=== PATIENT | female | born 1945 ===

== ENCOUNTER 2021-07-06 14:26 | Inpatient (IN) | payer OTHER ==
[~2021-07-06] VITALS: Ht 160 cm; Wt 89.0 kg
[2021-07-06 15:08] LABS: Basophils # (auto) 0.1 10 ^3/uL (0-0.2); Eosinophils # (auto) 0.3 10 ^3/uL (0-0.8); Eosinophils % (auto) 2.7 % (0.0-7.0); Hematocrit 35.5 % (36.0-46.0); Hemoglobin 11.6 g/dL (12.2-16.2); Lymphocytes # (auto) 2.8 10 ^3/uL (0.4-5.4); Lymphocytes % (auto) 26.1 % (10.0-50.0); Mean Corpuscular Hemoglobin 28.8 pg (28.0-32.0); Mean Corpuscular Hgb Conc. 32.8 g/dL (32.0-36.0); Mean Corpuscular Volume 87.9 fL (80.0-100.0); Monocytes # (auto) 0.8 10 ^3/uL (0-1.3); Monocytes % (auto) 7.7 % (0.0-12.0); Neutrophils # (auto) 6.6 10 ^3/uL (1.6-8.6); Neutrophils % (auto) 62.5 % (37.0-80.0); Nucleated Red Blood Cells % 0.1 %; Red Blood Cells 4.03 10^6/uL (4.0-5.20); Red Cell Distribution Width 14.9 % (11.8-14.3); White Blood Cell 10.6 10^3/uL (4.4-10.8)
[2021-07-06 15:28] LABS: Alanine Aminotransferase 18 U/L (13-56); Albumin 2.8 g/dL (3.4-5.0); Anion Gap 6 (5-15); Aspartate Aminotransferase 19 U/L (15-37); BUN/Creatinine Ratio 19.2; Blood Urea Nitrogen 20 mg/dL (7-18); Calcium 8.6 mg/dL (8.5-10.1); Carbon Dioxide 23 mmol/L (21-32); Chloride 112 mmol/L (98-107); GFR African American 67 mL/min; GFR Non-African American 55 mL/min; Glucose 138 mg/dL (74-106); Magnesium 2.2 mg/dL (1.6-2.6); Potassium 3.7 mmol/L (3.5-5.1); Sodium 141 mmol/L (136-145)
[2021-07-06 15:29] LABS: INR 1.13 (0.9-1.15); Partial Thromboplastin Time 25.8 sec (23.6-33.0)
[2021-07-06 15:33] LABS: Alkaline Phosphatase 65 U/L (45-117); Bilirubin, Total 0.8 mg/dL (0.2-1.0); Total Protein 6.8 g/dL (6.4-8.2)
[2021-07-06] MEDS ORDERED: FUROSEMIDE 40 MG/4 ML VIAL IV ONE (17:45)
[2021-07-06] MEDS ORDERED: LORazepam 0.5 MG TAB PO PRN (20:30)
[2021-07-06] MEDS ORDERED: SODIUM CHLORIDE 0.9% 1,000 ML IV SCH (20:30)
[2021-07-06] MEDS: DOXYCYCLINE 100MG/250ML 250 ML IV SCH (20:30)
[2021-07-06] MEDS ORDERED: ENOXAPARIN SOD 40 MG/0.4 ML SYRINGE SC ONE (20:30)
[2021-07-06] MEDS ORDERED: ATORVASTATIN 20 MG TAB PO ONE (20:30)
[2021-07-06] MEDS ORDERED: LACTATED RINGER'S 1,000 ML IV ONE (20:30)
[2021-07-06] MEDS ORDERED: ALUM & MAG HYDROX-SIMETH LIQ(MAALOX) 30 ML PO PRN (20:30)
[2021-07-06] MEDS ORDERED: ACETAMINOPHEN 325 MG TAB PO PRN (20:30)
[2021-07-06] MEDS ORDERED: DOXYCYCLINE 100MG/250ML 250 ML IV ONE (20:30)
[2021-07-06] MEDS ORDERED: MORPHINE SULFATE INJECTION 2 MG/ML SYRG IV PRN ×3 (20:30)
[2021-07-06] MEDS ORDERED: NITROGLYCERIN 0.4 MG SL TAB SL PRN ×2 (20:30)
[2021-07-06] MEDS ORDERED: LISINOPRIL 10 MG TAB PO ONE (20:45)
[2021-07-06] MEDS ORDERED: FAMOTIDINE (10MG/ML) 2ML VL IV ONE (20:45)
[2021-07-06] MEDS ORDERED: DEXTROSE (50%) 50ML SYRG IV PRN (20:45)
[2021-07-06 20:55] LABS: Cholesterol 182 mg/dL (< 200)
[2021-07-06 20:58] LABS: HDL Cholesterol 29 mg/dL (40-59); LDL Cholesterol 89 mg/dL (< 100); Triglycerides 376 mg/dL (< 150)
[2021-07-07] VITALS (21 sets, daily range): BP systolic 135–173; BP diastolic 40–58
[2021-07-07] MEDS ORDERED: DOPamine 1600MCG/ML D5W 250 ML IV SCH (00:15)
[2021-07-07] MEDS: InsuLIN REG 1unit/0.01ml Soln (100units/ml) SC SCH ×4 (00:21→21:43)
[2021-07-07] MEDS: ACCU-CHEK COMFORT CURVE STRIP VI SCH ×4 (00:22→21:44)
[2021-07-07] MEDS: ATORVASTATIN 20 MG TAB PO SCH ×2 (00:49→21:41)
[2021-07-07] MEDS ORDERED: hydrALAZINE HCL 20 MG/ML VL IV ONE (03:30)
[2021-07-07] MEDS: HYDROcodone-ACET 5/325MG TAB PO PRN ×2 (04:38→12:49)
[2021-07-07] MEDS: ONDANSETRON HCL 4 MG/2 ML VIAL IV PRN (05:23)
[2021-07-07] MEDS ORDERED: fentaNYL CITRATE 100 MCG/2 ML VL IV ONE (05:30)
[2021-07-07] MEDS ORDERED: HEPARIN SODIUM (PORCINE) 5000 UNITS/ML 1ML VIAL IV ONE (05:30)
[2021-07-07] MEDS ORDERED: fentaNYL CITRATE 100 MCG/2 ML VL ONE ×2 (05:48→07:45)
[2021-07-07 05:55] LABS: INR 1.13 (0.9-1.15); Partial Thromboplastin Time 25.3 sec (23.6-33.0)
[2021-07-07] MEDS ORDERED: FUROSEMIDE 20 MG/2 ML VIAL IV SCH (06:00)
[2021-07-07] MEDS ORDERED: LIDOCAINE 2%HCL (LOCAL ANESTH.) INJ 20ML MDV ONE (07:39)
[2021-07-07] MEDS ORDERED: IOHEXOL 350 MG/ML 100ML IJ ONE (07:39)
[2021-07-07] MEDS ORDERED: ANGIOMAX 250 MG VIAL IV ONE (07:44)
[2021-07-07] MEDS ORDERED: SODIUM CHL 0.9% 50 ML ONE (07:45)
[2021-07-07] MEDS ORDERED: diphenhdrAMINE HCL 50 MG/1 ML VL ONE (07:45)
[2021-07-07] MEDS ORDERED: MIDAZOLAM HCL 2MG/2ML 2ml VIAL (1mg/ml) ONE (07:45)
[2021-07-07] MEDS ORDERED: ONDANSETRON HCL 4 MG/2 ML VIAL ONE (08:04)
[2021-07-07] MEDS ORDERED: HEPARIN DRIP/D5W 100UNITS/ML 250 ML IV SCH (08:15)
[2021-07-07] MEDS ORDERED: IODIXANOL 320MG/ML 100ML BTL IV ONE ×2 (08:28→08:45)
[2021-07-07] MEDS ORDERED: ASPirin 325 MG TAB ONE (09:08)
[2021-07-07] MEDS ORDERED: TICAGRELOR 90 MG TAB ONE (09:08)
[2021-07-07] MEDS: ASPirin 81 mg TAB PO SCH (09:30)
[2021-07-07] MEDS ORDERED: ENOXAPARIN SOD 40 MG/0.4 ML SYRINGE SC SCH (10:00)
[2021-07-07] MEDS ORDERED: FAMOTIDINE (10MG/ML) 2ML VL IV SCH (10:00)
[2021-07-07] MEDS: LISINOPRIL 10 MG TAB PO SCH (10:28)
[2021-07-07] MEDS: DOXYCYCLINE 100MG/250ML 250 ML IV SCH ×2 (10:31→20:44)
[2021-07-07] MEDS: ISOSORBIDE MONONITRATE ER 60 MG TAB PO SCH (10:31)
[2021-07-07] MEDS: hydrALAZINE HCL 20 MG/ML VL IV PRN (11:58)
[2021-07-07] MEDS: TICAGRELOR 90 MG TAB PO SCH (21:42)
[2021-07-08] VITALS (22 sets, daily range): BP systolic 125–192; BP diastolic 42–129
[2021-07-08] MEDS: ONDANSETRON HCL 4 MG/2 ML VIAL IV PRN (04:17)
[2021-07-08 04:35] LABS: Basophils # (auto) 0.1 10 ^3/uL (0-0.2); Basophils % (auto) 0.7 % (0.0-2.0); Eosinophils # (auto) 0.1 10 ^3/uL (0-0.8); Eosinophils % (auto) 1.2 % (0.0-7.0); Hematocrit 34.7 % (36.0-46.0); Hemoglobin 11.7 g/dL (12.2-16.2); Lymphocytes # (auto) 2.4 10 ^3/uL (0.4-5.4); Lymphocytes % (auto) 20.9 % (10.0-50.0); Mean Corpuscular Hemoglobin 29.6 pg (28.0-32.0); Mean Corpuscular Hgb Conc. 33.7 g/dL (32.0-36.0); Monocytes # (auto) 1.1 10 ^3/uL (0-1.3); Monocytes % (auto) 9.4 % (0.0-12.0); Neutrophils # (auto) 7.7 10 ^3/uL (1.6-8.6); Neutrophils % (auto) 67.8 % (37.0-80.0); Nucleated Red Blood Cells % 0.2 %; Red Blood Cells 3.95 10^6/uL (4.0-5.20); Red Cell Distribution Width 15.3 % (11.8-14.3); White Blood Cell 11.4 10^3/uL (4.4-10.8)
[2021-07-08 04:46] LABS: INR 1.1 (0.9-1.15); Partial Thromboplastin Time 26.3 sec (23.6-33.0)
[2021-07-08] MEDS: ACCU-CHEK COMFORT CURVE STRIP VI SCH ×4 (06:30→22:04)
[2021-07-08] MEDS: InsuLIN REG 1unit/0.01ml Soln (100units/ml) SC SCH ×4 (06:30→22:04)
[2021-07-08] MEDS ORDERED: LIDOCAINE 2%HCL (LOCAL ANESTH.) INJ 20ML MDV ONE (08:18)
[2021-07-08] MEDS: hydrALAZINE HCL 20 MG/ML VL IV PRN (08:20)
[2021-07-08] MEDS: DOXYCYCLINE 100MG/250ML 250 ML IV SCH ×2 (08:33→20:38)
[2021-07-08] MEDS ORDERED: fentaNYL CITRATE 100 MCG/2 ML VL ONE ×2 (08:42→09:42)
[2021-07-08] MEDS ORDERED: MIDAZOLAM HCL 2MG/2ML 2ml VIAL (1mg/ml) ONE ×3 (08:42→10:24)
[2021-07-08] MEDS ORDERED: VANCOMYCIN HCL 1000 MG VL ONE ×2 (08:43→10:21)
[2021-07-08 08:52] LABS: BUN/Creatinine Ratio 19.6; Calcium 8.7 mg/dL (8.5-10.1); Potassium 3.6 mmol/L (3.5-5.1)
[2021-07-08] MEDS ORDERED: IODIXANOL 320MG/ML 100ML BTL IV ONE (09:11)
[2021-07-08] MEDS ORDERED: diphenhdrAMINE HCL 50 MG/1 ML VL ONE (09:24)
[2021-07-08] MEDS ORDERED: VANCOMYCIN 1GM/250ML 250 ML IV ONE (09:34)
[2021-07-08] MEDS: ASPirin 81 mg TAB PO SCH (10:00)
[2021-07-08] MEDS: TICAGRELOR 90 MG TAB PO SCH ×2 (10:00→21:21)
[2021-07-08] MEDS: ISOSORBIDE MONONITRATE ER 60 MG TAB PO SCH (11:27)
[2021-07-08] MEDS: PANTOPRAZOLE 40 MG TAB PO SCH (11:27)
[2021-07-08] MEDS: LISINOPRIL 10 MG TAB PO SCH (11:28)
[2021-07-08] MEDS: HYDROcodone-ACET 5/325MG TAB PO PRN (17:03)
[2021-07-08] MEDS: ATORVASTATIN 20 MG TAB PO SCH (21:21)
[2021-07-08] MEDS: VANCOMYCIN 1GM/250ML 250 ML IV SCH (22:05)
[2021-07-09 05:00] VITALS: BP 148/71
[2021-07-09 06:00] VITALS: BP 153/68
[2021-07-09 06:13] LABS: Calcium 8.6 mg/dL (8.5-10.1); Potassium 3.6 mmol/L (3.5-5.1)
[2021-07-09 06:16] LABS: BUN/Creatinine Ratio 22.5
[2021-07-09] MEDS: InsuLIN REG 1unit/0.01ml Soln (100units/ml) SC SCH ×3 (06:18→17:00)
[2021-07-09] MEDS: ACCU-CHEK COMFORT CURVE STRIP VI SCH ×3 (06:18→17:00)
[2021-07-09] MEDS: VANCOMYCIN 1GM/250ML 250 ML IV SCH (09:40)
[2021-07-09] MEDS: ASPirin 81 mg TAB PO SCH (09:40)
[2021-07-09] MEDS: DOXYCYCLINE 100MG/250ML 250 ML IV SCH (09:40)
[2021-07-09] MEDS: PANTOPRAZOLE 40 MG TAB PO SCH (09:43)
[2021-07-09] MEDS: ISOSORBIDE MONONITRATE ER 60 MG TAB PO SCH (09:43)
[2021-07-09] MEDS: LISINOPRIL 10 MG TAB PO SCH (09:43)
[2021-07-09] MEDS ORDERED: ATOR40TA52 PO (11:19)
[2021-07-09] MEDS ORDERED: PANT40T PO (11:19)
[2021-07-09] MEDS ORDERED: LISI-716 PO (11:19)
[2021-07-09] MEDS ORDERED: NITR0.4S29 SL (11:19)
[2021-07-09] MEDS ORDERED: DOXY-286 PO (11:19)
[2021-07-09] MEDS ORDERED: TICA90TA PO (11:19)
[2021-07-09] MEDS ORDERED: ASPI1TAB20 PO (11:19)
[2021-07-09 12:00] VITALS: BP 132/60
[2021-07-09] MEDS: TICAGRELOR 90 MG TAB PO SCH (12:13)
[2021-07-09 15:39] VITALS: BP 132/60
[2021-07-09 16:00] VITALS: BP 140/78
[2021-07-09] MEDS ORDERED: METO25TA5 PO (16:27)
== END 2021-07-09 17:10 | disposition home or self-care (01) | DRG 242 ==
LOC: EDBD 14:26 → ER 14:26 → TELE 20:19 → ICU WEST 07-07 14:40 → TELE-CENTR 07-08 17:44
PROVIDERS: ADMIT Hospitalist; ATTEND Internal Medicine
PROC: 027034Z Dilation of Coronary Artery, One Artery with Drug-eluting Intraluminal Device, Percutaneous Approach (ICD-10-PCS; 2021-07-07)
PROC: 4A023N7 Measurement of Cardiac Sampling and Pressure, Left Heart, Percutaneous Approach (ICD-10-PCS; 2021-07-07)
PROC: B211YZZ Fluoroscopy of Multiple Coronary Arteries using Other Contrast (ICD-10-PCS; 2021-07-07)
PROC: B215YZZ Fluoroscopy of Left Heart using Other Contrast (ICD-10-PCS; 2021-07-07)
PROC: 0JH606Z Insertion of Pacemaker, Dual Chamber into Chest Subcutaneous Tissue and Fascia, Open Approach (ICD-10-PCS; principal; 2021-07-08)
PROC: 02H63JZ Insertion of Pacemaker Lead into Right Atrium, Percutaneous Approach (ICD-10-PCS; 2021-07-08)
PROC: 02HK3JZ Insertion of Pacemaker Lead into Right Ventricle, Percutaneous Approach (ICD-10-PCS; 2021-07-08)
DX: I44.2 Atrioventricular block, complete (principal); J81.0 Acute pulmonary edema; I50.43 Acute on chronic combined systolic (congestive) and diastolic (congestive) heart failure; N39.0 Urinary tract infection, site not specified; N17.9 Acute kidney failure, unspecified; I13.0 Hypertensive heart and chronic kidney disease with heart failure and stage 1 through stage 4 chronic kidney disease, or unspecified chronic kidney disease; I25.10 Atherosclerotic heart disease of native coronary artery without angina pectoris; K21.9 Gastro-esophageal reflux disease without esophagitis; N18.31 Chronic kidney disease, stage 3a; N20.0 Calculus of kidney; K29.70 Gastritis, unspecified, without bleeding; E66.9 Obesity, unspecified; D64.9 Anemia, unspecified; E11.22 Type 2 diabetes mellitus with diabetic chronic kidney disease; E11.319 Type 2 diabetes mellitus with unspecified diabetic retinopathy without macular edema; E11.40 Type 2 diabetes mellitus with diabetic neuropathy, unspecified; E78.1 Pure hyperglyceridemia; E78.5 Hyperlipidemia, unspecified; E88.09 Other disorders of plasma-protein metabolism, not elsewhere classified; E89.0 Postprocedural hypothyroidism; Z20.822 Contact with and (suspected) exposure to COVID-19; Z79.02 Long term (current) use of antithrombotics/antiplatelets; Z82.49 Family history of ischemic heart disease and other diseases of the circulatory system; Z86.73 Personal history of transient ischemic attack (TIA), and cerebral infarction without residual deficits; Z87.442 Personal history of urinary calculi; Z90.710 Acquired absence of both cervix and uterus; Z95.1 Presence of aortocoronary bypass graft; Z83.3 Family history of diabetes mellitus; Z88.8 Allergy status to other drugs, medicaments and biological substances; Z68.34 Body mass index [BMI] 34.0-34.9, adult
CPT/HCPCS: 33208; 36415; 71045; 80048; 80053; 80061; 82962; 83036; 83735; 83880; 84443; 84484; 85025; 85610; 85730; 86850; 86900; 86901; 87040; 87426; 92928; 93005; 93306; 93458; 96365; 96366; 96372; 96375; 99152; 99153; 99291; C1785; C1874; C1887; G0378; J1815; J2250; J2405; J3490; Q9967

== ENCOUNTER 2021-08-28 14:25 | Emergency (ER) | payer OTHER ==
[~2021-08-28] VITALS: Ht 160 cm; Wt 81.6 kg
[~2021-08-28 14:25] MED LIST: ASPI1TAB20 PO; ATOR40TA52 PO; DOXY-286 PO; LISI-716 PO; METO25TA5 PO; NITR0.4S29 SL; PANT40T PO; TICA90TA PO
[2021-08-28 16:22] LABS: Basophils # (auto) 0 10 ^3/uL (0-0.2); Basophils % (auto) 0.4 % (0.0-2.0); Eosinophils # (auto) 0.1 10 ^3/uL (0-0.8); Eosinophils % (auto) 0.7 % (0.0-7.0); Hematocrit 37.4 % (36.0-46.0); Hemoglobin 12.4 g/dL (12.2-16.2); Lymphocytes # (auto) 1.4 10 ^3/uL (0.4-5.4); Mean Corpuscular Hemoglobin 28.4 pg (28.0-32.0); Mean Corpuscular Hgb Conc. 33.1 g/dL (32.0-36.0); Mean Corpuscular Volume 85.8 fL (80.0-100.0); Monocytes # (auto) 0.2 10 ^3/uL (0-1.3); Monocytes % (auto) 2.4 % (0.0-12.0); Neutrophils # (auto) 8.2 10 ^3/uL (1.6-8.6); Neutrophils % (auto) 82.5 % (37.0-80.0); Red Blood Cells 4.36 10^6/uL (4.0-5.20); White Blood Cell 9.9 10^3/uL (4.4-10.8)
[2021-08-28 16:38] LABS: BUN/Creatinine Ratio 11.5; Calcium 8.8 mg/dL (8.5-10.1); Potassium 3.7 mmol/L (3.5-5.1)
[2021-08-28 16:42] LABS: Bilirubin, Total 0.9 mg/dL (0.2-1.0); Total Protein 7.5 g/dL (6.4-8.2)
[2021-08-28 21:31] VITALS: BP 133/71
== END 2021-08-28 21:57 | disposition home or self-care (01) ==
LOC: ER 14:25 → EDBD 14:25 → ER 21:57
DX: R55 Syncope and collapse (principal); E78.5 Hyperlipidemia, unspecified; I10 Essential (primary) hypertension; K21.9 Gastro-esophageal reflux disease without esophagitis; Z90.710 Acquired absence of both cervix and uterus
CPT/HCPCS: 36415; 70450; 71045; 80053; 84484; 85025; 93005

== ENCOUNTER 2021-11-30 05:26 | Inpatient (IN) | payer OTHER ==
[~2021-11-30] VITALS: Ht 160 cm; Wt 80.0 kg
[2021-11-30 06:17] LABS: Basophils # (auto) 0.1 10 ^3/uL (0-0.2); Basophils % (auto) 0.9 % (0.0-2.0); Eosinophils # (auto) 0.2 10 ^3/uL (0-0.8); Eosinophils % (auto) 2.7 % (0.0-7.0); Hemoglobin 12.9 g/dL (12.2-16.2); Lymphocytes % (auto) 41.6 % (10.0-50.0); Mean Corpuscular Hemoglobin 27.7 pg (28.0-32.0); Mean Corpuscular Hgb Conc. 32.2 g/dL (32.0-36.0); Monocytes # (auto) 0.6 10 ^3/uL (0-1.3); Monocytes % (auto) 8.2 % (0.0-12.0); Neutrophils # (auto) 3.3 10 ^3/uL (1.6-8.6); Neutrophils % (auto) 46.6 % (37.0-80.0); Nucleated Red Blood Cells % 0.1 %; Red Blood Cells 4.65 10^6/uL (4.0-5.20); Red Cell Distribution Width 16.3 % (11.8-14.3); White Blood Cell 7.2 10^3/uL (4.4-10.8)
[2021-11-30 06:34] LABS: Potassium 3.3 mmol/L (3.5-5.1)
[2021-11-30 06:35] LABS: Albumin 3.2 g/dL (3.4-5.0)
[2021-11-30 06:41] LABS: BUN/Creatinine Ratio 18.6; Bilirubin, Total 0.6 mg/dL (0.2-1.0); Total Protein 8.1 g/dL (6.4-8.2)
[2021-11-30 07:16] LABS: Urine Bacteria NONE SEEN /hpf (None Seen); Urine Blood Negative /uL (Negative); Urine WBC 1 /hpf (0 - 5)
[2021-11-30] MEDS ORDERED: IOHEXOL 350 MG/ML 100ML IJ ONE (07:45)
[2021-11-30] MEDS ORDERED: cefTRIAXone W LIDOCAINE 1 GM IM IM ONE (09:30)
[2021-11-30] MEDS ORDERED: POTASSIUM EFFERVESENT TAB 25 MEQ PO ONE (09:30)
[2021-11-30] MEDS ORDERED: ASPirin 81 mg TAB PO ONE (09:45)
[2021-11-30] MEDS ORDERED: cefTRIAXone SOD 1,000 MG VL ONE (10:04)
[2021-11-30] MEDS ORDERED: LIDOCAINE 1% HCL (LOCAL ANESTH.) INJ 20ML MDV ONE (10:04)
[2021-11-30] MEDS ORDERED: PANTOPRAZOLE 40 MG/10 ML VIAL INJ IV ONE ×3 (13:45→20:00)
[2021-11-30] MEDS ORDERED: FUROSEMIDE 40 MG/4 ML VIAL IV ONE (14:00)
[2021-11-30] MEDS ORDERED: SUCCINYLCHOLINE CHLORIDE 20 MG/ML 10ML VIAL IV ONE ×2 (14:08→14:30)
[2021-11-30] MEDS ORDERED: ETOMIDATE (2MG/ML) 20ML VIAL IV ONE ×2 (14:08→14:30)
[2021-11-30 14:15] VITALS: BP 134/77
[2021-11-30] MEDS ORDERED: MIDAZOLAM DRIP 50 mg/50mL 50 ML IV ONE (14:16)
[2021-11-30] MEDS: MIDAZOLAM DRIP 50 mg/50mL 50 ML IV SCH (14:30)
[2021-11-30] MEDS: fentaNYL Drip 2500mCg/250mlNS 250 ML IV SCH (14:30)
[2021-11-30] MEDS ORDERED: fentaNYL Drip 2500mCg/250mlNS 250 ML IV ONE (14:41)
[2021-11-30] MEDS ORDERED: NOREPINEPHRINE 8 MG/250ML KIT 250 ML IV ONE (15:11)
[2021-11-30] MEDS: NOREPINEPHRINE 8 MG/250ML KIT 250 ML IV SCH (15:24)
[2021-11-30 16:09] VITALS: BP 100/49
[2021-11-30] MEDS ORDERED: FUROSEMIDE 100 MG/10ML VIAL IV ONE (16:30)
[2021-11-30] MEDS ORDERED: ENOXAPARIN SOD 100 MG/1 ML SYRINGE SC ONE (16:30)
[2021-11-30] MEDS ORDERED: NITROGLYCERIN 0.4 MG SL TAB SL PRN (16:30)
[2021-11-30] MEDS ORDERED: MORPHINE SULFATE INJECTION 2 MG/ML SYRG IV PRN ×2 (16:30→20:15)
[2021-11-30 19:15] VITALS: BP 96/72
[2021-11-30] MEDS ORDERED: hydrALAZINE HCL 20 MG/ML VL IV PRN (20:15)
[2021-11-30] MEDS ORDERED: HYDROcodone-ACET 5/325MG TAB PO ONE (20:15)
[2021-11-30] MEDS ORDERED: LORazepam 0.5 MG TAB PO PRN (20:15)
[2021-11-30] MEDS ORDERED: metroNIDAZOLE 500MG/100ML 100 ML IV ONE (20:15)
[2021-11-30] MEDS ORDERED: ONDANSETRON HCL 4 MG/2 ML VIAL IV PRN (20:15)
[2021-11-30] MEDS ORDERED: DOCUSATE SOD 100 MG CAP PO PRN (20:15)
[2021-11-30] MEDS ORDERED: POTASSIUM CHL 10MEQ/50ML 50 ML IV ONE (20:15)
[2021-11-30] MEDS ORDERED: BUMETANIDE 2.5mg/10ml (0.25 mg/ml) INJ IV ONE (20:15)
[2021-11-30] MEDS ORDERED: IPRATROPIUM BROM 0.5 MG/2.5ML INH SOL NEB ONE (20:15)
[2021-11-30] MEDS ORDERED: DEXTROSE (50%) 50ML SYRG IV PRN (21:00)
[2021-11-30 21:55] LABS: Phosphorus 4.2 mg/dL (2.5-4.90)
[2021-11-30 22:00] LABS: INR 1.16 (0.9-1.15); Partial Thromboplastin Time 27.9 sec (23.6-33.0)
[2021-11-30] MEDS: TICAGRELOR 90 MG TAB PO SCH (22:00)
[2021-11-30] MEDS: ATORVASTATIN 20 MG TAB PO SCH (22:00)
[2021-11-30] MEDS: POTASSIUM CHL 20 Meq TABLET PO SCH (22:00)
[2021-11-30] MEDS ORDERED: METOPROLOL TARTRATE 25 MG TAB PO SCH (22:00)
[2021-11-30] MEDS ORDERED: IPRATROPIUM BROM 0.5 MG/2.5ML INH SOL NEB SCH (22:00)
[2021-11-30 22:28] VITALS: BP_SYST 117; BP_SYST 5; BP_DIAS 65; BP_DIAS 72
[2021-12-01] VITALS (7 sets, daily range): BP systolic 104–136; BP diastolic 43–65
[2021-12-01] MEDS: InsuLIN REG 1unit/0.01ml Soln (100units/ml) SC SCH ×5 (01:48→22:36)
[2021-12-01] MEDS: ACCU-CHEK COMFORT CURVE STRIP VI SCH ×5 (05:29→22:34)
[2021-12-01] MEDS: metroNIDAZOLE 500MG/100ML 100 ML IV SCH ×3 (05:29→20:31)
[2021-12-01] MEDS: BUMETANIDE 2.5mg/10ml (0.25 mg/ml) INJ IV SCH ×2 (06:23→18:16)
[2021-12-01 07:58] LABS: Basophils # (auto) 0.1 10 ^3/uL (0-0.2); Basophils % (auto) 0.6 % (0.0-2.0); Eosinophils # (auto) 0.1 10 ^3/uL (0-0.8); Eosinophils % (auto) 0.7 % (0.0-7.0); Hematocrit 36.8 % (36.0-46.0); Hemoglobin 12.2 g/dL (12.2-16.2); Lymphocytes # (auto) 3.2 10 ^3/uL (0.4-5.4); Lymphocytes % (auto) 29.9 % (10.0-50.0); Mean Corpuscular Hemoglobin 28.6 pg (28.0-32.0); Mean Corpuscular Hgb Conc. 33.2 g/dL (32.0-36.0); Mean Corpuscular Volume 86.2 fL (80.0-100.0); Monocytes # (auto) 0.9 10 ^3/uL (0-1.3); Monocytes % (auto) 8.5 % (0.0-12.0); Neutrophils # (auto) 6.5 10 ^3/uL (1.6-8.6); Neutrophils % (auto) 60.3 % (37.0-80.0); Nucleated Red Blood Cells % 0.1 %; Red Blood Cells 4.27 10^6/uL (4.0-5.20); Red Cell Distribution Width 16.4 % (11.8-14.3); White Blood Cell 10.7 10^3/uL (4.4-10.8)
[2021-12-01 08:11] LABS: INR 1.14 (0.9-1.15); Partial Thromboplastin Time 27.6 sec (23.6-33.0)
[2021-12-01 08:19] LABS: Potassium 3.5 mmol/L (3.5-5.1)
[2021-12-01 08:33] LABS: Albumin 2.8 g/dL (3.4-5.0); BUN/Creatinine Ratio 21.6; Bilirubin, Total 0.8 mg/dL (0.2-1.0); Calcium 8.4 mg/dL (8.5-10.1); Phosphorus 3.6 mg/dL (2.5-4.90); Total Protein 7.2 g/dL (6.4-8.2)
[2021-12-01] MEDS: cefTRIAXone 1GM/50ML D5W 50 ML IV SCH (09:51)
[2021-12-01] MEDS ORDERED: ENOXAPARIN SOD 40 MG/0.4 ML SYRINGE SC SCH (10:00)
[2021-12-01] MEDS: POTASSIUM CHL 20 Meq TABLET PO SCH ×2 (10:33→22:00)
[2021-12-01] MEDS: ASPirin-EC 81 mg tab PO SCH (10:33)
[2021-12-01] MEDS: PANTOPRAZOLE 40 MG/10 ML VIAL INJ IV SCH (10:54)
[2021-12-01] MEDS: ENOXAPARIN SOD 100 MG/1 ML SYRINGE SC SCH ×2 (10:54→22:00)
[2021-12-01] MEDS: TICAGRELOR 90 MG TAB PO SCH ×2 (11:09→22:00)
[2021-12-01] MEDS: MIDAZOLAM DRIP 50 mg/50mL 50 ML IV SCH (14:34)
[2021-12-01] MEDS: fentaNYL Drip 2500mCg/250mlNS 250 ML IV SCH (14:51)
[2021-12-01] MEDS: NOREPINEPHRINE 8 MG/250ML KIT 250 ML IV SCH (15:58)
[2021-12-01] MEDS: ATORVASTATIN 20 MG TAB PO SCH (22:00)
[2021-12-02] VITALS (30 sets, daily range): BP systolic 96–152; BP diastolic 38–76
[2021-12-02] MEDS: metroNIDAZOLE 500MG/100ML 100 ML IV SCH (04:57)
[2021-12-02] MEDS: BUMETANIDE 2.5mg/10ml (0.25 mg/ml) INJ IV SCH ×2 (06:38→18:23)
[2021-12-02] MEDS: InsuLIN REG 1unit/0.01ml Soln (100units/ml) SC SCH ×3 (06:40→18:13)
[2021-12-02] MEDS: ACCU-CHEK COMFORT CURVE STRIP VI SCH ×4 (06:44→22:00)
[2021-12-02 08:06] LABS: Basophils # (auto) 0 10 ^3/uL (0-0.2); Basophils % (auto) 0.4 % (0.0-2.0); Eosinophils # (auto) 0.3 10 ^3/uL (0-0.8); Eosinophils % (auto) 2.1 % (0.0-7.0); Hematocrit 32.9 % (36.0-46.0); Hemoglobin 10.9 g/dL (12.2-16.2); Lymphocytes # (auto) 2.2 10 ^3/uL (0.4-5.4); Lymphocytes % (auto) 18.9 % (10.0-50.0); Mean Corpuscular Hemoglobin 28.6 pg (28.0-32.0); Mean Corpuscular Hgb Conc. 33.2 g/dL (32.0-36.0); Mean Corpuscular Volume 86.2 fL (80.0-100.0); Monocytes # (auto) 1.2 10 ^3/uL (0-1.3); Monocytes % (auto) 10.2 % (0.0-12.0); Neutrophils # (auto) 8.1 10 ^3/uL (1.6-8.6); Neutrophils % (auto) 68.4 % (37.0-80.0); Nucleated Red Blood Cells % 0.1 %; Red Blood Cells 3.82 10^6/uL (4.0-5.20); Red Cell Distribution Width 16.3 % (11.8-14.3); White Blood Cell 11.8 10^3/uL (4.4-10.8)
[2021-12-02 08:19] LABS: INR 1.1 (0.9-1.15); Partial Thromboplastin Time 26.5 sec (23.6-33.0)
[2021-12-02 08:25] LABS: Calcium 8.7 mg/dL (8.5-10.1); Potassium 3.3 mmol/L (3.5-5.1)
[2021-12-02] MEDS ORDERED: SODIUM CHL 0.9% 50 ML ONE (09:42)
[2021-12-02] MEDS ORDERED: ANGIOMAX 250 MG VIAL IV ONE (09:42)
[2021-12-02] MEDS ORDERED: HEPARIN SODIUM (PORCINE) 5000 UNITS/ML 1ML VIAL ONE (09:50)
[2021-12-02] MEDS ORDERED: VERAPAMIL 2.5MG/ML INJ 2ML VIAL IV ONE (09:50)
[2021-12-02] MEDS: TICAGRELOR 90 MG TAB PO SCH ×2 (10:00→22:00)
[2021-12-02] MEDS ORDERED: IODIXANOL 320MG/ML 100ML BTL IV ONE (10:23)
[2021-12-02] MEDS ORDERED: TICAGRELOR 90 MG TAB ONE (11:07)
[2021-12-02] MEDS: MIDAZOLAM DRIP 50 mg/50mL 50 ML IV SCH ×2 (14:30→21:30)
[2021-12-02] MEDS: cefTRIAXone 1GM/50ML D5W 50 ML IV SCH (15:14)
[2021-12-02] MEDS: POTASSIUM CHL 20 Meq TABLET PO SCH ×2 (15:15→22:00)
[2021-12-02] MEDS: NOREPINEPHRINE 8 MG/250ML KIT 250 ML IV SCH (16:00)
[2021-12-02] MEDS: ASPirin-EC 81 mg tab PO SCH (17:25)
[2021-12-02] MEDS: PANTOPRAZOLE 40 MG/10 ML VIAL INJ IV SCH (17:26)
[2021-12-02] MEDS: fentaNYL Drip 2500mCg/250mlNS 250 ML IV SCH (21:27)
[2021-12-02] MEDS: ATORVASTATIN 20 MG TAB PO SCH (22:00)
[2021-12-03] VITALS (38 sets, daily range): BP systolic 94–158; BP diastolic 40–81
[2021-12-03] MEDS: InsuLIN REG 1unit/0.01ml Soln (100units/ml) SC SCH ×5 (01:19→23:25)
[2021-12-03] MEDS: BUMETANIDE 2.5mg/10ml (0.25 mg/ml) INJ IV SCH (05:32)
[2021-12-03] MEDS: ACCU-CHEK COMFORT CURVE STRIP VI SCH ×4 (05:33→22:00)
[2021-12-03] MEDS: IPRATROPIUM BROM 0.5 MG/2.5ML INH SOL NEB PRN ×2 (06:31→14:06)
[2021-12-03] MEDS: POTASSIUM CHL 20 Meq TABLET PO SCH ×2 (10:00→22:00)
[2021-12-03] MEDS: PANTOPRAZOLE 40 MG/10 ML VIAL INJ IV SCH (10:00)
[2021-12-03] MEDS: ASPirin-EC 81 mg tab PO SCH (10:00)
[2021-12-03] MEDS: TICAGRELOR 90 MG TAB PO SCH ×2 (10:00→22:00)
[2021-12-03] MEDS ORDERED: cefTRIAXone 1GM/50ML D5W 50 ML IV ONE (10:15)
[2021-12-03 11:51] LABS: Basophils # (auto) 0 10 ^3/uL (0-0.2); Basophils % (auto) 0.4 % (0.0-2.0); Eosinophils # (auto) 0 10 ^3/uL (0-0.8); Eosinophils % (auto) 0.5 % (0.0-7.0); Hematocrit 32.1 % (36.0-46.0); Hemoglobin 10.5 g/dL (12.2-16.2); Lymphocytes # (auto) 1.7 10 ^3/uL (0.4-5.4); Lymphocytes % (auto) 16.5 % (10.0-50.0); Mean Corpuscular Hemoglobin 28.5 pg (28.0-32.0); Mean Corpuscular Hgb Conc. 32.8 g/dL (32.0-36.0); Mean Corpuscular Volume 86.9 fL (80.0-100.0); Monocytes # (auto) 0.9 10 ^3/uL (0-1.3); Monocytes % (auto) 8.7 % (0.0-12.0); Neutrophils # (auto) 7.8 10 ^3/uL (1.6-8.6); Neutrophils % (auto) 73.9 % (37.0-80.0); Nucleated Red Blood Cells % 0.1 %; Red Cell Distribution Width 16.2 % (11.8-14.3); White Blood Cell 10.5 10^3/uL (4.4-10.8)
[2021-12-03] MEDS ORDERED: AMPICILLIN INJ 1 GM in SODIUM CHL 0.9% 50 ML IV SCH (12:00)
[2021-12-03 12:06] LABS: Albumin 2.4 g/dL (3.4-5.0); BUN/Creatinine Ratio 25.4; Calcium 8.8 mg/dL (8.5-10.1); Potassium 3.6 mmol/L (3.5-5.1)
[2021-12-03 12:09] LABS: Bilirubin, Total 0.8 mg/dL (0.2-1.0); Total Protein 6.9 g/dL (6.4-8.2)
[2021-12-03] MEDS: NOREPINEPHRINE 8 MG/250ML KIT 250 ML IV SCH (15:15)
[2021-12-03] MEDS: FUROSEMIDE 40 MG/4 ML VIAL IV SCH (17:53)
[2021-12-03] MEDS: CARVEDILOL 12.5 MG TAB PO SCH (22:00)
[2021-12-03] MEDS ORDERED: ATORVASTATIN 20 MG TAB PO SCH (22:00)
[2021-12-03] MEDS: ATORVASTATIN 20 MG TAB PO SCH (22:00)
[2021-12-04] VITALS (24 sets, daily range): BP systolic 102–158; BP diastolic 44–86
[2021-12-04] MEDS: FUROSEMIDE 40 MG/4 ML VIAL IV SCH ×2 (05:59→18:44)
[2021-12-04] MEDS: ACCU-CHEK COMFORT CURVE STRIP VI SCH ×4 (06:28→22:00)
[2021-12-04] MEDS: InsuLIN REG 1unit/0.01ml Soln (100units/ml) SC SCH ×4 (06:28→22:49)
[2021-12-04] MEDS: IPRATROPIUM BROM 0.5 MG/2.5ML INH SOL NEB PRN (08:30)
[2021-12-04] MEDS: cefTRIAXone 1GM/50ML D5W 50 ML IV SCH (09:20)
[2021-12-04] MEDS: LISINOPRIL 10 MG TAB PO SCH (10:00)
[2021-12-04] MEDS: DAPAGLIFLOZIN 5 MG TAB PO SCH (10:00)
[2021-12-04] MEDS: ASPirin-EC 81 mg tab PO SCH (10:00)
[2021-12-04] MEDS: TICAGRELOR 90 MG TAB PO SCH ×2 (10:00→22:00)
[2021-12-04] MEDS: POTASSIUM CHL 20 Meq TABLET PO SCH ×2 (10:00→22:48)
[2021-12-04] MEDS: CARVEDILOL 12.5 MG TAB PO SCH ×2 (10:00→22:00)
[2021-12-04] MEDS: PANTOPRAZOLE 40 MG/10 ML VIAL INJ IV SCH (10:00)
[2021-12-04 12:28] LABS: Basophils # (auto) 0 10 ^3/uL (0-0.2); Basophils % (auto) 0.3 % (0.0-2.0); Eosinophils # (auto) 0 10 ^3/uL (0-0.8); Hematocrit 32.2 % (36.0-46.0); Hemoglobin 10.7 g/dL (12.2-16.2); Lymphocytes # (auto) 1.3 10 ^3/uL (0.4-5.4); Mean Corpuscular Hemoglobin 28.8 pg (28.0-32.0); Mean Corpuscular Hgb Conc. 33.4 g/dL (32.0-36.0); Mean Corpuscular Volume 86.2 fL (80.0-100.0); Monocytes # (auto) 0.7 10 ^3/uL (0-1.3); Monocytes % (auto) 7.4 % (0.0-12.0); Neutrophils # (auto) 7.1 10 ^3/uL (1.6-8.6); Neutrophils % (auto) 78.3 % (37.0-80.0); Red Blood Cells 3.73 10^6/uL (4.0-5.20); Red Cell Distribution Width 16.3 % (11.8-14.3); White Blood Cell 9.1 10^3/uL (4.4-10.8)
[2021-12-04 12:56] LABS: BUN/Creatinine Ratio 28.9; Calcium 8.9 mg/dL (8.5-10.1); Potassium 3.2 mmol/L (3.5-5.1)
[2021-12-04] MEDS: ATORVASTATIN 20 MG TAB PO SCH (22:48)
[2021-12-05] VITALS (7 sets, daily range): BP systolic 91–119; BP diastolic 34–56
[2021-12-05] MEDS: FUROSEMIDE 40 MG/4 ML VIAL IV SCH ×2 (05:50→09:12)
[2021-12-05] MEDS: InsuLIN REG 1unit/0.01ml Soln (100units/ml) SC SCH ×4 (06:52→22:27)
[2021-12-05] MEDS: ACCU-CHEK COMFORT CURVE STRIP VI SCH ×4 (06:52→22:24)
[2021-12-05] MEDS: PANTOPRAZOLE 40 MG/10 ML VIAL INJ IV SCH (09:11)
[2021-12-05] MEDS: DAPAGLIFLOZIN 5 MG TAB PO SCH (09:12)
[2021-12-05] MEDS: TICAGRELOR 90 MG TAB PO SCH ×2 (09:13→22:23)
[2021-12-05] MEDS: ASPirin-EC 81 mg tab PO SCH (09:14)
[2021-12-05] MEDS: POTASSIUM CHL 20 Meq TABLET PO SCH ×2 (09:15→22:24)
[2021-12-05] MEDS: LISINOPRIL 10 MG TAB PO SCH (09:18)
[2021-12-05] MEDS: CARVEDILOL 12.5 MG TAB PO SCH ×2 (09:19→22:24)
[2021-12-05] MEDS: cefTRIAXone 1GM/50ML D5W 50 ML IV SCH (09:22)
[2021-12-05] MEDS: HYDROcodone-ACET 5/325MG TAB PO PRN ×2 (11:08→13:37)
[2021-12-05] MEDS: ATORVASTATIN 20 MG TAB PO SCH (22:23)
[2021-12-06 04:38] VITALS: BP 121/58
[2021-12-06] MEDS: FUROSEMIDE 40 MG/4 ML VIAL IV SCH ×2 (06:25→18:13)
[2021-12-06] MEDS: ACCU-CHEK COMFORT CURVE STRIP VI SCH ×4 (06:48→21:29)
[2021-12-06] MEDS: InsuLIN REG 1unit/0.01ml Soln (100units/ml) SC SCH ×4 (06:49→21:29)
[2021-12-06 09:10] VITALS: BP 118/63
[2021-12-06] MEDS: HYDROcodone-ACET 5/325MG TAB PO PRN ×2 (09:22→21:28)
[2021-12-06] MEDS: cefTRIAXone 1GM/50ML D5W 50 ML IV SCH (09:22)
[2021-12-06] MEDS: DAPAGLIFLOZIN 5 MG TAB PO SCH (09:38)
[2021-12-06] MEDS: PANTOPRAZOLE 40 MG/10 ML VIAL INJ IV SCH (09:38)
[2021-12-06] MEDS: CARVEDILOL 12.5 MG TAB PO SCH ×2 (09:38→21:29)
[2021-12-06] MEDS: ASPirin-EC 81 mg tab PO SCH (09:38)
[2021-12-06] MEDS: TICAGRELOR 90 MG TAB PO SCH ×2 (09:38→21:28)
[2021-12-06] MEDS: LISINOPRIL 10 MG TAB PO SCH (09:39)
[2021-12-06] MEDS: POTASSIUM CHL 20 Meq TABLET PO SCH ×2 (09:39→21:29)
[2021-12-06] MEDS: ATORVASTATIN 20 MG TAB PO SCH (21:28)
[2021-12-06 22:00] VITALS: BP 107/54
[2021-12-07 04:38] VITALS: BP 108/48
[2021-12-07] MEDS: FUROSEMIDE 40 MG/4 ML VIAL IV SCH (06:28)
[2021-12-07] MEDS: ACCU-CHEK COMFORT CURVE STRIP VI SCH ×2 (06:48→11:30)
[2021-12-07] MEDS: InsuLIN REG 1unit/0.01ml Soln (100units/ml) SC SCH ×2 (06:51→11:30)
[2021-12-07] MEDS ORDERED: DAPA1TAB4 PO (09:23)
[2021-12-07] MEDS ORDERED: CARV12.544 PO (09:23)
[2021-12-07] MEDS: TICAGRELOR 90 MG TAB PO SCH (09:27)
[2021-12-07] MEDS: PANTOPRAZOLE 40 MG/10 ML VIAL INJ IV SCH (09:27)
[2021-12-07] MEDS: CARVEDILOL 12.5 MG TAB PO SCH (09:27)
[2021-12-07] MEDS: cefTRIAXone 1GM/50ML D5W 50 ML IV SCH (09:27)
[2021-12-07] MEDS: ASPirin-EC 81 mg tab PO SCH (09:28)
[2021-12-07] MEDS: POTASSIUM CHL 20 Meq TABLET PO SCH (09:28)
[2021-12-07] MEDS: LISINOPRIL 10 MG TAB PO SCH (09:28)
[2021-12-07] MEDS: DAPAGLIFLOZIN 5 MG TAB PO SCH (10:00)
== END 2021-12-07 13:45 | disposition home or self-care (01) | DRG 250 ==
LOC: ER 05:26 → TELE 16:28 → CATH ICU 12-02 07:46 → TELE-CENTR 12-05 10:15
PROVIDERS: ADMIT Hospitalist; ATTEND Family Medicine
PROC: 5A1945Z Respiratory Ventilation, 24-96 Consecutive Hours (ICD-10-PCS; 2021-11-30)
PROC: 0BH17EZ Insertion of Endotracheal Airway into Trachea, Via Natural or Artificial Opening (ICD-10-PCS; 2021-11-30)
PROC: 06HM33Z Insertion of Infusion Device into Right Femoral Vein, Percutaneous Approach (ICD-10-PCS; 2021-11-30)
PROC: 02703ZZ Dilation of Coronary Artery, One Artery, Percutaneous Approach (ICD-10-PCS; principal; 2021-12-02)
PROC: 4A023N7 Measurement of Cardiac Sampling and Pressure, Left Heart, Percutaneous Approach (ICD-10-PCS; 2021-12-02)
PROC: B212YZZ Fluoroscopy of Single Coronary Artery Bypass Graft using Other Contrast (ICD-10-PCS; 2021-12-02)
PROC: B218YZZ Fluoroscopy of Left Internal Mammary Bypass Graft using Other Contrast (ICD-10-PCS; 2021-12-02)
PROC: B215YZZ Fluoroscopy of Left Heart using Other Contrast (ICD-10-PCS; 2021-12-02)
DX: I21.4 Non-ST elevation (NSTEMI) myocardial infarction (principal); I50.33 Acute on chronic diastolic (congestive) heart failure; R57.0 Cardiogenic shock; J96.01 Acute respiratory failure with hypoxia; J18.9 Pneumonia, unspecified organism; N39.0 Urinary tract infection, site not specified; J98.11 Atelectasis; I11.0 Hypertensive heart disease with heart failure; I25.10 Atherosclerotic heart disease of native coronary artery without angina pectoris; E11.40 Type 2 diabetes mellitus with diabetic neuropathy, unspecified; E88.09 Other disorders of plasma-protein metabolism, not elsewhere classified; K21.9 Gastro-esophageal reflux disease without esophagitis; E11.21 Type 2 diabetes mellitus with diabetic nephropathy; E66.9 Obesity, unspecified; E78.5 Hyperlipidemia, unspecified; B95.1 Streptococcus, group B, as the cause of diseases classified elsewhere; Z20.822 Contact with and (suspected) exposure to COVID-19; Z68.35 Body mass index [BMI] 35.0-35.9, adult; Z79.02 Long term (current) use of antithrombotics/antiplatelets; Z79.82 Long term (current) use of aspirin; Z86.73 Personal history of transient ischemic attack (TIA), and cerebral infarction without residual deficits; Z90.49 Acquired absence of other specified parts of digestive tract; Z90.710 Acquired absence of both cervix and uterus; Z95.0 Presence of cardiac pacemaker; I25.2 Old myocardial infarction; Z88.1 Allergy status to other antibiotic agents; Z95.5 Presence of coronary angioplasty implant and graft
CPT/HCPCS: 31500; 36415; 36556; 36600; 71045; 71260; 74177; 80048; 80053; 80061; 81001; 82728; 82805; 82962; 83036; 83690; 83735; 83880; 84100; 84132; 84443; 84484; 85025; 85379; 85610; 85730; 87040; 87070; 87081; 87086; 87088; 87205; 87426; 93005; 93306; 93970; 94002; 94003; 94640; 96365; 96368; 96372; 96375; 97163; 99152; 99153; C1887; C9113; G0378; J0330; J0696; J1815; J2001; J2250; J2405; J3490; Q9967

== ENCOUNTER 2022-06-15 15:12 | Emergency (ER) | payer OTHER ==
[~2022-06-15] VITALS: Ht 160 cm; Wt 80.0 kg
[~2022-06-15 15:12] MED LIST changes: +CARV12.544 PO; +DAPA1TAB4 PO
[2022-06-15 16:30] LABS: Basophils # (auto) 0.1 10 ^3/uL (0-0.2); Basophils % (auto) 0.5 % (0.0-2.0); Eosinophils # (auto) 0.1 10 ^3/uL (0-0.8); Eosinophils % (auto) 0.4 % (0.0-7.0); Hematocrit 36.7 % (36.0-46.0); Hemoglobin 11.7 g/dL (12.2-16.2); Lymphocytes # (auto) 0.8 10 ^3/uL (0.4-5.4); Lymphocytes % (auto) 4.1 % (10.0-50.0); Mean Corpuscular Hemoglobin 27.1 pg (28.0-32.0); Mean Corpuscular Volume 84.9 fL (80.0-100.0); Monocytes # (auto) 0.7 10 ^3/uL (0-1.3); Monocytes % (auto) 3.8 % (0.0-12.0); Neutrophils # (auto) 17.2 10 ^3/uL (1.6-8.6); Neutrophils % (auto) 91.2 % (37.0-80.0); Red Blood Cells 4.32 10^6/uL (4.0-5.20); Red Cell Distribution Width 15.9 % (11.8-14.3); White Blood Cell 18.9 10^3/uL (4.4-10.8)
[2022-06-15 16:51] LABS: Albumin 3.1 g/dL (3.4-5.0); Lactic Acid w/Reflex 3.3 mmol/L (0.4-2.0); Potassium 3.9 mmol/L (3.5-5.1)
[2022-06-15 16:55] LABS: BUN/Creatinine Ratio 12.2; Bilirubin, Total 1.1 mg/dL (0.2-1.0); Total Protein 7.9 g/dL (6.4-8.2)
[2022-06-15 17:19] LABS: Urine Bacteria NONE SEEN /hpf (None Seen); Urine Blood Negative /uL (Negative); Urine Hyaline Cast FEW /lpf (0 - 2); Urine Mucus FEW (None Seen); Urine Specific Gravity 1.023 (1.001-1.035); Urine WBC 8 /hpf (0 - 5)
[2022-06-15] MEDS ORDERED: IOHEXOL 300 MG/ML 100ML BOTTLE IJ ONE (17:37)
[2022-06-15] MEDS ORDERED: ACETAMINOPHEN 325 MG TAB PO ONE ×2 (18:45→22:30)
[2022-06-15] MEDS ORDERED: VANCOMYCIN 1GM/250ML 250 ML IV ONE (18:45)
[2022-06-15] MEDS ORDERED: ASPirin 325 MG TAB PO ONE (18:45)
[2022-06-15] MEDS ORDERED: SODIUM CHLORIDE 0.9% 1,000 ML IV ONE (18:45)
[2022-06-15] MEDS ORDERED: ENOXAPARIN SOD 80 MG/0.8ML SYRINGE SC ONE (20:45)
[2022-06-15] MEDS ORDERED: PIPERACILLIN-TAZOB 3.375GM 100 ML IV ONE (21:30)
[2022-06-16 02:04] VITALS: BP 149/64
== END 2022-06-16 02:24 | disposition short-term general hospital (02) ==
LOC: ER 15:12
DX: A41.9 Sepsis, unspecified organism (principal); D72.829 Elevated white blood cell count, unspecified; L03.116 Cellulitis of left lower limb; R10.13 Epigastric pain; R11.2 Nausea with vomiting, unspecified; I21.4 Non-ST elevation (NSTEMI) myocardial infarction; R74.8 Abnormal levels of other serum enzymes; I13.0 Hypertensive heart and chronic kidney disease with heart failure and stage 1 through stage 4 chronic kidney disease, or unspecified chronic kidney disease; E11.22 Type 2 diabetes mellitus with diabetic chronic kidney disease; N18.9 Chronic kidney disease, unspecified; I50.9 Heart failure, unspecified; I25.10 Atherosclerotic heart disease of native coronary artery without angina pectoris; E78.5 Hyperlipidemia, unspecified; K21.9 Gastro-esophageal reflux disease without esophagitis; Z86.73 Personal history of transient ischemic attack (TIA), and cerebral infarction without residual deficits; Z95.1 Presence of aortocoronary bypass graft; Z95.0 Presence of cardiac pacemaker; Z90.710 Acquired absence of both cervix and uterus; Z90.89 Acquired absence of other organs; Z79.82 Long term (current) use of aspirin; Z79.899 Other long term (current) drug therapy; Z88.8 Allergy status to other drugs, medicaments and biological substances; Z20.822 Contact with and (suspected) exposure to COVID-19
CPT/HCPCS: 36415; 71045; 80053; 81001; 83605; 83690; 84484; 85025; 87040; 87426; 93005; 93971; 96365; 96366; 96368; 96372; 99291; J1650; J2543; J3370; J7030; Q9967

== ENCOUNTER 2024-03-22 13:20 | Emergency (ER) | payer OTHER ==
[~2024-03-22] VITALS: Ht 160 cm; Wt 77.0 kg
[~2024-03-22 13:20] MED LIST changes: -LISI-716 PO; +LISI10TA34 PO
[2024-03-22] MEDS: PANTOPRAZOLE 40 MG/10 ML VIAL INJ IV ONE (14:30)
[2024-03-22] MEDS: ONDANSETRON HCL 4 MG/2 ML VIAL IV ONE (14:30)
[2024-03-22] MEDS: SODIUM CHLORIDE 0.9% 500 ML IVB ONE (14:30)
[2024-03-22] MEDS: MORPHINE SULFATE 4 MG/ML SYR/VIAL IV ONE (14:30)
[2024-03-22 15:02] LABS: Basophils # (auto) 0.1 10 ^3/uL (0-0.2); Basophils % (auto) 0.7 % (0.0-2.0); Eosinophils # (auto) 0.1 10 ^3/uL (0-0.8); Eosinophils % (auto) 1.2 % (0.0-7.0); Hematocrit 37.8 % (36.0-46.0); Hemoglobin 12.7 g/dL (12.2-16.2); Lymphocytes # (auto) 2.4 10 ^3/uL (0.4-5.4); Lymphocytes % (auto) 30.6 % (10.0-50.0); Mean Corpuscular Hemoglobin 29.8 pg (28.0-32.0); Mean Corpuscular Hgb Conc. 33.6 g/dL (32.0-36.0); Mean Corpuscular Volume 88.7 fL (80.0-100.0); Monocytes # (auto) 0.5 10 ^3/uL (0-1.3); Monocytes % (auto) 6.6 % (0.0-12.0); Neutrophils # (auto) 4.7 10 ^3/uL (1.6-8.6); Neutrophils % (auto) 60.9 % (37.0-80.0); Red Blood Cells 4.26 10^6/uL (4.0-5.20); Red Cell Distribution Width 13.6 % (11.8-14.3); White Blood Cell 7.8 10^3/uL (4.4-10.8)
[2024-03-22 15:19] LABS: Alanine Aminotransferase 11 U/L (7-40); Albumin 4.1 g/dL (3.2-4.8); Alkaline Phosphatase 59 U/L (46-116); Anion Gap 12 (5-15); Aspartate Aminotransferase 14 U/L (13-40); BUN/Creatinine Ratio 13.8 (10.0-20.0); Bilirubin, Total 0.6 mg/dL (0.2-1.0); Blood Urea Nitrogen 13 mg/dL (9-23); Carbon Dioxide 21 mmol/L (20-30); Chloride 102 mmol/L (98-107); Glucose 201 mg/dL (74-106); Lipase 41 U/L (12-53); Potassium 3.4 mmol/L (3.5-5.1); Sodium 135 mmol/L (136-145); Total Protein 7.5 g/dL (5.7-8.2)
[2024-03-22 18:51] VITALS: BP 138/62; PULSE 82; RESP 20; TEMP 98.2; O2SAT 94
== END 2024-03-22 19:17 | disposition short-term general hospital (02) ==
LOC: ER 13:20
DX: R10.9 Unspecified abdominal pain (principal); K83.1 Obstruction of bile duct; E11.22 Type 2 diabetes mellitus with diabetic chronic kidney disease; I13.0 Hypertensive heart and chronic kidney disease with heart failure and stage 1 through stage 4 chronic kidney disease, or unspecified chronic kidney disease; N18.9 Chronic kidney disease, unspecified; I50.89 Other heart failure; K21.9 Gastro-esophageal reflux disease without esophagitis; E78.5 Hyperlipidemia, unspecified; Z86.73 Personal history of transient ischemic attack (TIA), and cerebral infarction without residual deficits; Z87.442 Personal history of urinary calculi; Z90.710 Acquired absence of both cervix and uterus
CPT/HCPCS: 36415; 76705; 80053; 83690; 85025; 93005; 96361; 96374; 96375; 99285; C9113; J2270; J2405; J7040

== ENCOUNTER 2024-05-31 10:05 | Emergency (ER) | payer OTHER ==
[~2024-05-31] VITALS: Ht 160 cm; Wt 73.6 kg
[2024-05-31 10:50] VITALS: PULSE 64; RESP 12; O2SAT 96
[2024-05-31] MEDS: ONDANSETRON HCL 4 MG/2 ML VIAL IV ONE ×2 (10:58→16:33)
[2024-05-31] MEDS: MORPHINE SULFATE 4 MG/ML SYR/VIAL IV ONE ×2 (11:00→16:34)
[2024-05-31] MEDS: PANTOPRAZOLE 40 MG/10 ML VIAL INJ IV ONE (11:07)
[2024-05-31] MEDS: SODIUM CHLORIDE 0.9% 500 ML IVB ONE (11:08)
[2024-05-31 11:16] LABS: Alanine Aminotransferase 13 U/L (7-40); Albumin 3.7 g/dL (3.2-4.8); Alkaline Phosphatase 71 U/L (46-116); Anion Gap 10 (5-15); Aspartate Aminotransferase 15 U/L (13-40); Bilirubin, Total 0.5 mg/dL (0.2-1.0); Blood Urea Nitrogen 11 mg/dL (9-23); Calcium 9.2 mg/dL (8.7-10.4); Carbon Dioxide 23 mmol/L (20-30); Chloride 105 mmol/L (98-107); Glucose 201 mg/dL (74-106); Lipase 32 U/L (12-53); Potassium 3.8 mmol/L (3.5-5.1); Sodium 138 mmol/L (136-145); Total Protein 7.2 g/dL (5.7-8.2)
[2024-05-31 15:06] LABS: Basophils # (auto) 0.1 10 ^3/uL (0-0.2); Basophils % (auto) 1.7 % (0.0-2.0); Eosinophils # (auto) 0.1 10 ^3/uL (0-0.8); Hematocrit 36.4 % (36.0-46.0); Hemoglobin 12.1 g/dL (12.2-16.2); Lymphocytes # (auto) 2.3 10 ^3/uL (0.4-5.4); Mean Corpuscular Hemoglobin 29.3 pg (28.0-32.0); Mean Corpuscular Hgb Conc. 33.3 g/dL (32.0-36.0); Mean Corpuscular Volume 87.8 fL (80.0-100.0); Monocytes # (auto) 0.4 10 ^3/uL (0-1.3); Monocytes % (auto) 5.9 % (0.0-12.0); Neutrophils # (auto) 3.5 10 ^3/uL (1.6-8.6); Neutrophils % (auto) 54.4 % (37.0-80.0); Nucleated Red Blood Cells % 0.2 %; Red Blood Cells 4.15 10^6/uL (4.0-5.20); Red Cell Distribution Width 13.5 % (11.8-14.3); White Blood Cell 6.4 10^3/uL (4.4-10.8)
[2024-05-31 19:31] VITALS: BP 151/43; PULSE 67; RESP 18; TEMP 97.9; O2SAT 97
[2024-05-31 19:39] LABS: Urine Bacteria FEW /hpf (None Seen); Urine Blood Negative /uL (Negative); Urine Clarity Clear (Clear); Urine Color Light-Yellow (Yellow); Urine Protein, UAD Negative (Negative); Urine Specific Gravity 1.008 (1.001-1.035); Urine Urobilinogen Normal (Negative); Urine WBC 1 /hpf (0 - 5)
== END 2024-05-31 19:51 | disposition short-term general hospital (02) ==
LOC: EDBD 10:05 → ER 10:05
DX: N20.0 Calculus of kidney (principal); R10.13 Epigastric pain; I13.0 Hypertensive heart and chronic kidney disease with heart failure and stage 1 through stage 4 chronic kidney disease, or unspecified chronic kidney disease; E11.22 Type 2 diabetes mellitus with diabetic chronic kidney disease; N18.9 Chronic kidney disease, unspecified; I50.9 Heart failure, unspecified; E78.5 Hyperlipidemia, unspecified; I25.10 Atherosclerotic heart disease of native coronary artery without angina pectoris; I25.2 Old myocardial infarction; K21.9 Gastro-esophageal reflux disease without esophagitis; Z98.890 Other specified postprocedural states; Z88.8 Allergy status to other drugs, medicaments and biological substances; Z79.899 Other long term (current) drug therapy
CPT/HCPCS: 36415; 74176; 80053; 81001; 83690; 84484; 85025; 93005; 96374; 96375; 96376; 99285; J2270; J2405; J2470

== ENCOUNTER 2025-07-20 13:58 | Inpatient (IN) | payer OTHER ==
[~2025-07-20] VITALS: Ht 162.6 cm; Wt 73.2 kg
[~2025-07-20 13:58] MED LIST changes: +EMPA1TAB3 PO; +LISI2.5T47 PO; +OMEP1CAP70 PO; +SERT25TA28 PO
[2025-07-20 15:00] VITALS: RESP 18; O2SAT 98
[2025-07-20 15:58] LABS: Hematocrit 38.3 % (36.0-46.0); Hemoglobin 13.3 g/dL (12.2-16.2); Mean Corpuscular Hemoglobin 29.5 pg (28.0-32.0); Mean Corpuscular Volume 84.9 fL (80.0-100.0); Nucleated Red Blood Cells % 0.1 %
--- NOTE | 2025-07-20 16:09 | DVH ---
CHEST RADIOGRAPH Indication: n/v/d abd pain Technique: Single frontal view of the chest was obtained COMPARISON: CHEST PORTABLE on DOS: 06/15/22, CXRP on DOS: 06/15/22, CHEST XRAY 1 VIEW on DOS: 12/02/21, C HEST PORTABLE on DOS: 12/01/21, CHEST PORTABLE on DOS: 11/30/21 FINDINGS: Lines and Tubes: Left chest wall pacemaker Lungs: Pulmonary vascular congestion Pleura: No effusion.No pneumothorax. Cardiomediastinal contours: Cardiomegaly Bones: Unremarkable IMPRESSION: Cardiomegaly and pulmonary vascular congestion.
[2025-07-20 16:20] LABS: Alanine Aminotransferase 18 U/L (7-40); Albumin 3.9 g/dL (3.2-4.8); Alkaline Phosphatase 94 U/L (46-116); Anion Gap 16 (5-15); BUN/Creatinine Ratio 10.2 (10.0-20.0); Bilirubin, Total 0.8 mg/dL (0.2-1.0); Calcium 8.7 mg/dL (8.7-10.4); Carbon Dioxide 23 mmol/L (20-31); Total Protein 7.1 g/dL (5.7-8.2)
[2025-07-20 16:22] LABS: Sodium 135 mmol/L (136-145)
[2025-07-20 16:23] LABS: Blood Urea Nitrogen 9 mg/dL (9-23); Chloride 96 mmol/L (98-107); Glucose 168 mg/dL (74-106)
[2025-07-20 16:27] LABS: Lactic Acid w/Reflex 4.7 mmol/L (0.4-2.0); Potassium 2.4 mmol/L (3.5-5.1)
[2025-07-20 16:36] LABS: Lipase 34 U/L (12-53)
--- NOTE | 2025-07-20 16:44 | DVH ---
Indication: abd pain n/v/d Technique: CT axial images of the abdomen and pelvis are obtained without contrast. Coronal and sagit magdalena reformats were obtained. Radiation Dose Information: CTDI volume is 11.4 mGy. Dose-length product is 526 mGy*cm Comparison: CT ABD/PEL on DOS: 07/26/24 report only FINDINGS: There is limited interpretation of the abdomen and pelvis without administration of intravenous contr ast. Bases demonstrate no pleural effusion. Adrenal glands, spleen, pancreas unremarkable in shape. Cholecystectomy. Possible 3 mm calculus in the distal CBD region. Liver unremarkable in shape. Hepati c calcifications consistent with remote granulomatous disease. Nonobstructing left renal calculi up to 3 mm. Nonobstructing right renal calculiup to 2 3 mm. Small hiatal hernia. Stomach is partially distended. Small bowel loops are normal in caliber. Moderate volume stool in the colon. Normal appendix. Abdominal aortic atherosclerotic disease and tortuosity. Bladder distended. No free pelvic fluid. Sma ll fat containing inguinal hernias. No inguinal lymphadenopathy. Subcutaneous injection granuloma/ scarring. Severe thoracolumbar degenerative disc disease. Ankylosis of the L2 through L4 vertebral bodies. Se qasim lumbar facet hypertrophic changes. Lumbar levocurvature. IMPRESSION: Limited evaluation without contrast. Nonobstructing bilateral renal calculi up to 3 mm. Dilated CBD measuring 14 mm. Possible distal CBD calculus measuring 3 mm. Recommend MRCP and GI con sultation. Cholecystectomy. Atherosclerotic disease. Bladder distention. Other findings as described.
--- NOTE | 2025-07-20 16:48 | ED.PDOC ---
GI ASSESSMENT HPI Comments HPI: Markus 79 y.o female presents to the ED for a chief complaint of diffused abdominal pain that started 3 weeks ago and is now associated with nausea, vomiting, and diarrhea for about 5 days. Patient reports pain is constant, sharp, worse on palpation and has no alleviating factors. Patient reports being seen at [facility] one week ago for same complaint and was told all her results were normal. She denies any fever, chills, bloody stool, chest pain or SOB/ Initial Vitals BP: 176/67 HR: 88 RR: 20 O2: Temp: 98 F Past Medical History: CAD, [place], DM, HTN, HLD, CHF, CVA, CKF Past Surgical History: Thyroidectomy, pacemaker, CABG, hysterectomy Social History: Denies ETOH, smoking, and drug use. Allergies: NSAIDs and cephalexin MARKUS: HPI: Bela Historian. REVIEW OF SYSTEMS: CONSTITUTIONAL: Denies acute: fever, diaphoresis, chills, HEAD: Denies acute: headache, photophobia Eyes: Denies acute: Double vision, vision loss, eye pain, eye discharge. EARS: Denies acute: tinnitus, hearing loss, ear discharge, ear pain, THROAT: Denies acute: sore throat, swelling, difficulty swallowing , pain with swallowing, change in voice. NECK: Denies acute: neck pain, neck swelling, stiff neck. HEART: Denies acute : chest pain, palpitations, LUNGS: Denies acute: SOB, wheezing, cough, hemoptysis ABDOMEN: Denies acute: melena , hematemesis, hematochezia SKIN: Denies acute: rash, redness, lesions, itchiness. EXTREMITIES: Denies acute: calf pain, numbness, tingling, weakness, denies pain in extremity. Denies acute: Low back pain. Neuro: Denies acute: focal neurological deficit, motor or sensory focal neurological deficit, tremors, seizure like activity, confusion, dizziness, change in mental status, loss of bowel or bladder function, cauda equina like symptoms. : Denies acute: dysuria, hematuria, flank pain, increase in urinary frequency. PSYCH: Denies acute: hallucination, suicidal ideation, homicidal ideation. FEMALE: Denies acute: abnormal vaginal bleeding, foul odor, unusual discharge. PHYSICAL EXAM: General: ----moderate----acute distress, awake and alert. Head: normocephalic, atraumatic. Neck: supple, trachea is midline, no swelling. Throat: Normal phonation. Eyes:, no erythema, no purulent discharge, no proptosis, no icterus. Heart: regular rate, regular rhythm, no significant murmur appreciated. Lungs: no apparent respiratory distress, Able to speak in full sentences. No wheezing, no rhonchi, no crackles. No stridors Clear to auscultation bilaterally. Abdomen: Generalized tender to palpation, non distended, soft, no guarding, no rebound, + bowel sounds. Obese Neuro: Awake, Alert, oriented to name, self, situation, follows commands GCS=15. Speech is normal. Skin: no petechia, no purpura, no cyanosis, non-pale, not jaundice. Lower extremities: --trace bilateral- Pitting edema no deformity, no focal swelling, no calf TTP. Makes eye contact. moves all four extremities. Face: no apparent facial droop. ED COURSE: DISCLAIMER: This medical document was created using an electronic medical record system with voice recognition software and computerized dictation system. Although this docu ment has been carefully reviewed, there might still be some phonetic and typographical errors. Occasional wrong-word or "sound-alike" substitutions may have occurred due to the inherent limitations of voice recognition software. These areas are purely typographical due to imperfections of the software programs and do not reflect any compromise in the patient's medical care. Please read the chart carefully and recognize, using context, where these substitutions have occurred. Chief Complaint: General Weakness Time Seen by MD: 16:28 Primary Care Provider: STERLING Reviewed Notes: Allergies Allergies: Coded Allergies: Cephalexin (Verified Allergy, Unknown, 07/06/21) NSAIDs (Verified Allergy, Unknown, 12/01/21) Home Meds Active Scripts Carvedilol (Carvedilol) 12.5 Mg Tab, 1 TAB PO BID, #180 TAB 1 Refill Prov:CINDY REHMAN MD 12/07/21 Metoprolol Tartrate (Metoprolol Tartrate) 25 Mg Tab, 1 TAB PO BID, #60 TAB 0 Refills Prov:RAFI TRIPLETT MD 07/09/21 Nitroglycerin (NTROSTAT SUBLINGUAL) 0.4 Mg Sl, 0.4 MG SL Q5MINP PRN, #30 TAB Prov:RAFI TRIPLETT MD 07/09/21 Atorvastatin Calcium (ATORVASTATIN CALCIUM) 40 Mg Tab, 1 TAB PO QPM, #90 TAB 0 Refills Prov:RAFI TRIPLETT MD 07/09/21 Ticagrelor Base (BRILINTA) 90 Mg Tab, 90 MG PO BID for 30 Days, #60 TAB Prov:RAFI TRIPLETT MD 07/09/21 Aspirin (Aspir-81) 81 Mg Tab, 1 TAB PO DAILY for 90 Days, #90 TAB 0 Refills Prov:RAFI TRIPLETT MD 07/09/21 Reported Medications Lisinopril (Lisinopril) 2.5 Mg Tab, 1 TAB PO DAILY for 100 Days, #100 07/22/25 Empagliflozin (Jardiance) 25 Mg Tab, 0.5 TAB PO DAILY for 100 Days, #50 07/22/25 Sertraline Hcl (Sertraline Hcl) 25 Mg Tab, 1 TAB PO DAILY for 100 Days, #100 07/22/25 Omeprazole (Omeprazole Dr) 20 Mg Cap, 1 CAP PO BID for 60 Days, #120 07/22/25 Information Source: Patient Mode of Arrival: EMS Past Medical History PAST MEDICAL HISTORY: CAD, CHF, CKF, CVA, DM, GERD, High Lipids, HTN, Kidney Stones, [place] Surgical History: CABG, Hysterectomy, Pacemaker, Thyroidectomy NUTRITION TECH History: No Pertinent NUTRITION TECH History Family History Family History: Unknown Social History Smoker: Non-Smoker Alcohol: Denies ETOH Use Drugs: Denies Drug Use Lives In: Home Was a procedure done? Was a procedure done?: No GI differential Dx Differential Diagnosis: Diverticular disease, Esophagitis, Gastroenteritis, Inflammatory BD, Other (DDX include Diverticulitis, colitis, gastroenteritis, acute abdomen, SBO, enteritis, constipation, volvulus, appendicitis, Gallbladder disease, choledocolithiasis, ascending cholangitis, pancreatitis, intraAbdominal mass/neoplasm, hepatitis, UTI, pylonephritis, kidney stone, aneurysm, dissection, Inflammatory bowel disease, gastroparesis, ischemic bowel,,,,,, ) X-Ray, Labs, Meds, VS Vital Signs Date Time Temp Pulse Resp B/P (MAP) Pulse Ox O2 Delivery O2 Flow Rate FiO2 07/20/25 19:35 92 18 98 Room Air* 0 21 07/20/25 19:05 97.9 73 17 138/64 (88) 98 97.9 07/20/25 18:18 96 31 163/74 (103) 07/20/25 17:57 163/74 07/20/25 17:00 74 19 163/74 (103) 100 07/20/25 16:51 142/63 07/20/25 16:00 70 07/20/25 15:00 18 98 Room Air* 0 21 07/20/25 15:00 98.3 72 18 153/54 (87) 98 98.3 07/20/25 14:14 98.0 88 20 176/67 99 98.0 Lab Test 07/20/25 18:06 07/20/25 16:29 07/20/25 15:44 07/20/25 15:28 Range/Units Sodium Level 135 L 135 L 136-145 mmol/L Potassium Level 2.6 L 2.4 *L 3.5-5.1 mmol/L Chloride Level 97 L 96 L 98-107 mmol/L Carbon Dioxide Level 22 23 20-31 mmol/L Anion Gap 16 H 16 H 5-15 Blood Urea Nitrogen 7 L 9 9-23 mg/dL Creatinine 0.83 0.88 0.550-1.02 mg/dL Glomerular Filtration Rate Calc 73 68 >90 mL/min BUN/Creatinine Ratio 8.4 L 10.2 10.0-20.0 Serum Glucose 95 168 H 74-106 mg/dL Lactic Acid Level 3.2 *H 4.7 *H 0.4-2.0 mmol/L Calcium Level 9.1 8.7 8.7-10.4 mg/dL Troponin I High Sensitivity 81 *H 71 *H 66 *H </=34 ng/L White Blood Count 10.7 4.4-10.8 10^3/uL Red Blood Count 4.51 4.0-5.20 10^6/uL Hemoglobin 13.3 12.2-16.2 g/dL Hematocrit 38.3 36.0-46.0 % Mean Corpuscular Volume 84.9 80.0-100.0 fL Mean Corpuscular Hemoglobin 29.5 28.0-32.0 pg Mean Corpuscular Hemoglobin Concent 34.7 32.0-36.0 g/dL Red Cell Distribution Width 14.5 H 11.8-14.3 % Platelet Count 225 140-450 10^3/uL Mean Platelet Volume 7.3 6.9-10.8 fL Neutrophils (%) (Auto) 73.6 37.0-80.0 % Lymphocytes (%) (Auto) 18.1 10.0-50.0 % Monocytes (%) (Auto) 7.2 0.0-12.0 % Eosinophils (%) (Auto) 0.4 0.0-7.0 % Basophils (%) (Auto) 0.7 0.0-2.0 % Neutrophils # (Auto) 7.9 1.6-8.6 10 ^3/uL Lymphocytes # (Auto) 1.9 0.4-5.4 10 ^3/uL Monocytes # (Auto) 0.8 0-1.3 10 ^3/uL Eosinophils # (Auto) 0 0-0.8 10 ^3/uL Basophils # (Auto) 0.1 0-0.2 10 ^3/uL Nucleated Red Blood Cells 0.1 % Magnesium Level 1.5 L 1.6-2.6 mg/dL Total Bilirubin 0.8 0.2-1.0 mg/dL Aspartate Amino Transferase (AST) 22 13-40 U/L Alanine Aminotransferase (ALT) 18 7-40 U/L Alkaline Phosphatase 94 46-116 U/L B-Type Natriuretic Peptide 194.35 0-100 pg/mL Total Protein 7.1 5.7-8.2 g/dL Albumin 3.9 3.2-4.8 g/dL Lipase 34 12-53 U/L Urine Color Colorless Yellow Urine Clarity Clear Clear Urine pH 6.5 5.0-9.0 Urine Specific [place] 1.005 1.001-1.035 Urine Protein Negative Negative Urine Ketones Negative Negative Urine Blood Negative Negative /uL Urine Nitrite Negative Negative Urine Bilirubin Negative Negative Urine Urobilinogen Normal Negative mg/dL Urine Leukocyte Esterase Negative Negative /uL Urine RBC None seen 0 - 4 /hpf Urine Microscopic WBC < 1 0-5 /HPF Urine Squamous Epithelial Cells Few <5 /hpf Urine Bacteria None seen None Seen /hpf Urine Glucose 4+ H Normal mg/dL Test 07/19/25 16:57 Range/Units Hepatitis B Surface Antigen Negative Negative Hepatitis C Antibody Negative Negative Microbiology Date/Time Source Procedure Growth Status 07/20/25 16:51 Blood Blood Culture - Preliminary NO GROWTH AFTER 72 HOURS OF INCUBATION. Resulted 07/20/25 16:40 Blood Blood Culture - Preliminary NO GROWTH AFTER 72 HOURS OF INCUBATION. Resulted [facility] [id number] [facility] [address] Ph: [phone] DIAGNOSTIC IMAGING Diagnostic Imaging Report : [id number] Signed PATIENT: ADAN LOVELL ACCT: [id number] UNIT: [id number] : 1945 LOC: ER ROOM / BED: / AGE / SEX: 79 / F ADM STATUS: REG ER SERVICE [id number] ORDERING PHYSICIAN: RO GALEAS DO PROCEDURE(s): ABPL - CT AB PEL WO CON-NO ORAL OR IV REASON: abd pain n/v/d ORDER NUMBER(s): [id number], ACCESSION NUMBER(s): [id number] Indication: abd pain n/v/d Technique: CT axial images of the abdomen and pelvis are obtained without contrast. Coronal and sagittal reformats were obtained. Radiation Dose Information: CTDI volume is 11.4 mGy. Dose-length product is 526 mGy*cm Comparison: CT ABD/PEL on DOS: 07/26/24 report only FINDINGS: There is limited interpretation of the abdomen and pelvis without administration of intravenous contrast. Bases demonstrate no pleural effusion. Adrenal glands, spleen, pancreas unremarkable in shape. Cholecystectomy. Possible 3 mm calculus in the distal CBD region. Liver unremarkable in shape. Hepatic calcifications consistent with remote granulomato us disease. Nonobstructing left renal calculi up to 3 mm. Nonobstructing right renal calculiup to 2 3 mm. Small hiatal hernia. Stomach is partially distended. Small bowel loops are normal in caliber. Moderate volume stool in the colon. Normal appendix. Abdominal aortic atherosclerotic disease and tortuosity. Bladder distended. No free pelvic fluid. Small fat containing inguinal hernias. No inguinal lymphadenopathy. Subcutaneous injection granuloma/ scarring. Severe thoracolumbar degenerative disc disease. Ankylosis of the L2 through L4 vertebral bodies. Severe lumbar facet hypertrophic changes. Lumbar levocurvature. IMPRESSION: Limited evaluation without contrast. Nonobstructing bilateral renal calculi up to 3 mm. Dilated CBD measuring 14 mm. Possible distal CBD calculus measuring 3 mm. Recommend MRCP and GI consultation. Cholecystectomy. Atherosclerotic disease. Bladder distention. Other findings as described. [address] [address] Ph: [phone] DIAGNOSTIC IMAGING Diagnostic Imaging Report : [id number] Signed PATIENT: ADAN LOVELL ACCT: [id number] UNIT: [id number] : 1945 LOC: ER ROOM / BED: / AGE / SEX: 79 / F ADM STATUS: REG ER SERVICE 1528 ORDERING PHYSICIAN: RO GALEAS DO PROCEDURE(s): CXRP - CHEST PORTABLE REASON: n/v/d abd pain ORDER NUMBER(s): [id number], ACCESSION NUMBER(s): [id number] CHEST RADIOGRAPH Indication: n/v/d abd pain Technique: Single frontal view of the chest was obtained COMPARISON: CHEST PORTABLE on DOS: 06/15/22, CXRP on DOS: 06/15/22, CHEST XRAY 1 VIEW on DOS: 12/02/21, CHEST PORTABLE on DOS: 12/01/21, CHEST PORTABLE on DOS: 11/30/21 FINDINGS: Lines and Tubes: Left chest wall pacemaker Lungs: Pulmonary vascular congestion Pleura: No effusion.No pneumothorax. Cardiomediastinal contours: Cardiomegaly Bones: Unremarkable IMPRESSION: Cardiomegaly and pulmonary vascular congestion. Time of 1ST Reevaluation: 16:36 Reevaluation 1ST: Unchanged Time of 2ND Reevaluation: 17:09 (The case was discussed with the [facility] admitting team (HPI, physical exam, labs and diagnostic tests that were available at the time of disposition, ED course, treatment plan) on the phone. They agreed to transfer the patient to their service by ALS for further evaluation and treatment. Dr. hopkins--. Authorization number is--[id number]) Reevaluation 2ND: Unchanged Patient Education/Counseling: Diagnosis, Treatment Family Education/Counseling: No Family Present Comments MDM: patient presented with the above HPI.---abdominal pain---workup was initiated. patient was found with the above mentioned diagnosis. the following medications were ordered: please refer to order lists of meds and tests obtained by myself Dr. Galeas. Patient ED course and VS have been stabilized. Patient has been reassessed in the ED and remained in a stable condition. Pertinent incidental findings were discussed with the patient and/or family. Patient/family voices understanding and is agreeable with plan. Patient has been observed in the ED adequate length of time to insure improvement/stability. Escalation of care considered: Consideration of escalation to observation or admission Patient was given fentanyl for pain control. Patient electrolytes were replaced for magnesium and potassium. Patient was given Lasix for volume overload. Given the patient's elevated troponin, aspirin was given. Patient was given antibiotics Flagyl for empiric antibiotics. Stool studies were still pending. Patient was transferred per insurance requirement for further evaluation and treatment of their presentation. All the reports of any imaging studies that were ordered by myself were reviewed by myself. Departure 1 Departure Time of Disposition: 16:55 Impression: Primary Impression: Abdominal pain Additional Impressions: Nausea vomiting and diarrhea Elevated troponin Hypokalemia Elevated lactic acid level Pulmonary vascular congestion Hypomagnesemia Disposition: 02 SHORT TERM HOSPITAL Condition: Guarded Discharged With: Self Critical Care Note Critical Care Time?: Yes (1 hr-critical care time only) Heart Score Heart Score: Heart Score Response (Comments) Value History Slightly Suspicious 0 EKG Normal 0 Age >65 2 Risk Factors >3 or Hx ASHD 2 Troponin 1-2 x's Normal limit 1 Total 5 I personally scribed for RO GALEAS DO ([email or web address]) on 07/20/25 at 16:48. Electronically submitted by Salima Madison ([facility]). I personally scribed for RO GALEAS DO ([email or web address]) on 07/20/25 at 16:50. Electronically submitted by Niurka Nogueira ([email or web address]). RO GALEAS DO Jul 20, 2025 16:48
[2025-07-20] MEDS: POTASSIUM CHL 20 Meq TABLET PO ONE (16:50)
[2025-07-20] MEDS: FUROSEMIDE 40 MG/4 ML VIAL IV ONE (16:51)
[2025-07-20] MEDS ORDERED: ASPirin-EC 325mg tab PO ONE (17:00)
[2025-07-20 17:27] LABS: Urine Protein, UAD Negative (Negative)
[2025-07-20] MEDS: fentaNYL CITRATE 100 MCG/2 ML VL IV ONE (17:57)
[2025-07-20] MEDS: MAGNESIUM SULFATE 1GM/100ML 100 ML IV ONE (18:22)
[2025-07-20 18:34] LABS: Calcium 9.1 mg/dL (8.7-10.4); Carbon Dioxide 22 mmol/L (20-31)
[2025-07-20 18:36] LABS: Chloride 97 mmol/L (98-107); Potassium 2.6 mmol/L (3.5-5.1)
[2025-07-20 18:39] LABS: BUN/Creatinine Ratio 8.4 (10.0-20.0); Glucose 95 mg/dL (74-106)
[2025-07-20 18:47] LABS: Blood Urea Nitrogen 7 mg/dL (9-23)
[2025-07-20 19:01] LABS: Anion Gap 16 (5-15); Sodium 135 mmol/L (136-145)
[2025-07-20 19:35] VITALS: PULSE 92; RESP 18; O2SAT 98
[2025-07-20] MEDS ORDERED: MORPHINE SULFATE INJ 2 MG/ml SYRG IV PRN (20:30)
[2025-07-20] MEDS ORDERED: NITROGLYCERIN 0.4 MG SL TAB SL PRN (20:30)
--- NOTE | 2025-07-20 20:50 | DVHHP2 ---
LELAND MEYER RESIDENT 07/20/252049: History of Present Illness History of Present Illness Patient is 79-year-old female who C/O blackout at home today. Brought in by paramedics. Also reports worsening abdominal pain for the past 2 wk. Pain has been intermittent for years but acutely worsened. Pain is located in the middle of the abdomen, radiates side to side. Describes pain as burning ("it abraham"), rates it 10/10. Reports nausea, dizziness, and diarrhea daily for the past week. Patient was recently seen at [place] where she was told that everything was fine including labs. Reports feeling warm and having chills, which seem to be associated with pain exacerbation ("every time I get upset, the pain comes down a little bit and then it picks up again"). Poor oral intake for the past week ("ate, but not much of anything"). Last PO intake was a little water a few hours ago. Last BM was this morning. Patient also reports mild shortness of breath. Patient denying any other complaint at this point. Past medical history: DM, HTN, HLD, CAD s/p multiple PCI and CABG, obesity, systolic HF, complete heart block s/p pacemaker, history of CVA. Past surgical history :Hysterectomy, CABG, PRP, vitrectomy, lithotripsy. C holecystectomy status uncertain. Personal history :Lives with daughter and (who has Alzheimer's). Denies h/o smoking or recreational drug use. Is DNR. Allergy :Keflex. Family history :HTN, DM. Home medications :Takes medications regularly. She does not recall her home medication. Review of Systems Constitutional: No: Fever, Chills, Sweats, Weakness, Malaise, Other Eyes: No: Pain, Vision change, Conjunctivae inflammation, Eyelid inflammation, Other, Redness ENT: No: Ear pain, Ear discharge, Nose pain, Nose discharge, Nose congestion, Mouth pain, Mouth swelling, Throat pain, Throat swelling, Other Respiratory: No: Cough, Dry, Shortness of breath, SOB with excertion, Wheezing, Hemoptysis, Pleuritic Pain, Sputum, Wheezing, Other Cardiovascular: No: Chest Pain, Palpitations, Orthopnea, Paroxysmal Noc. Dyspnea, Edema, Lt Headedness, Other Gastrointestinal: Nausea, Vomiting, Abdominal Pain Genitourinary: No Dysuria, No Frequency, No Incontinence, No Hematuria, No Retention, No Other Musculoskeletal: No: other, neck pain, shoulder pain, arm pain, back pain, hand pain, leg pain, foot pain Skin: No: Rash, Lesions, Jaundice, Bruising, Other Neurological: No: Weakness, Numbness, Incoordination, Change in speech, Confusion, Seizures, Other Allergies: Coded Allergies: Cephalexin (Verified Allergy, Unknown, 07/06/21) NSAIDs (Verified Allergy, Unknown, 12/01/21) Medications Current Medications Medications Dose Ordered Sig/Jaret Route Start Time Stop Time Status Last Admin Dose Admin Nitroglycerin 0.4 mg Q5MINP PRN SL 07/20/25 20:30 Morphine Sulfate 2 mg Q30M PRN IV 07/20/25 20:30 Piperacillin Sod/ Tazobactam Sod 100 ml @ 25 mls/hr Q8HR IV 07/20/25 22:00 UNV Pantoprazole Sodium 40 mg DAILY IV 07/21/25 10:00 UNV Morphine Sulfate 1 mg Q4HP PRN IV 07/20/25 20:30 Furosemide 20 mg DAILY IV 07/21/25 10:00 Aspirin 81 mg DAILY PO 07/21/25 10:00 UNV Sucralfate 1 gm QIDACHS PO 07/20/25 22:00 Atorvastatin Calcium 40 mg HS PO 07/20/25 22:00 UNV Lisinopril 5 mg DAILY PO 07/21/25 10:00 UNV Exam Vital Signs Vital Signs Date Time Temp Pulse Resp B/P (MAP) Pulse Ox O2 Delivery O2 Flow Rate FiO2 07/20/25 19:05 97.9 73 17 138/64 (88) 98 97.9 07/20/25 15:00 Room Air* 0 21 Exam General Appearance: Cooperative. Well developed. Well nourished. NAD Head Exam: Normal inspection Neck Exam: Normal inspection. Non-tender. Normal alignment Pulmonary/Respiratory: Chest non-tender. Clear bilateral breath sounds Cardiovascular/Chest: Regular rate and rhythm. No murmurs. No JVD. Peripheral Pulses: 2+ Radial (R). 2+ Radial (L). 2+ Pedal (R). 2+ Pedal (L) Abdominal Exam: Normal bowel sounds. Soft. Tenderness over middle quadrant of abdomen, no rigidity or rebound tenderness. No hepatospenomegaly. No masses Ankle Exam: Negative ankle edema Lower extremities: Negative lower extremity edema Neuro/Mental Status: A&O x4. Coherent Thoughts/Psych: Normal thought pattern. Appropriate mood and affect. Good judgement and insight Labs/Xrays Labs Test 07/20/25 18:06 07/20/25 15:44 07/20/25 15:28 Range/Units Sodium Level 135 L 136-145 mmol/L Potassium Level 2.6 L 3.5-5.1 mmol/L Chloride Level 97 L 98-107 mmol/L Carbon Dioxide Level 22 20-31 mmol/L Anion Gap 16 H 5-15 Blood Urea Nitrogen 7 L 9-23 mg/dL Creatinine 0.83 0.550-1.02 mg/dL Glomerular Filtration Rate Calc 73 >90 mL/min BUN/Creatinine Ratio 8.4 L 10.0-20.0 Serum Glucose 95 74-106 mg/dL Lactic Acid Level 3.2 *H 0.4-2.0 mmol/L Calcium Level 9.1 8.7-10.4 mg/dL Troponin I High Sensitivity 81 *H </=34 ng/L White Blood Count 10.7 4.4-10.8 10^3/uL Red Blood Count 4.51 4.0-5.20 10^6/uL Hemoglobin 13.3 12.2-16.2 g/dL Hematocrit 38.3 36.0-46.0 % Mean Corpuscular Volume 84.9 80.0-100.0 fL Mean Corpuscular Hemoglobin 29.5 28.0-32.0 pg Mean Corpuscular Hemoglobin Concent 34.7 32.0-36.0 g/dL Red Cell Distribution Width 14.5 H 11.8-14.3 % Platelet Count 225 140-450 10^3/uL Mean Platelet Volume 7.3 6.9-10.8 fL Neutrophils (%) (Auto) 73.6 37.0-80.0 % Lymphocytes (%) (Auto) 18.1 10.0-50.0 % Monocytes (%) (Auto) 7.2 0.0-12.0 % Eosinophils (%) (Auto) 0.4 0.0-7.0 % Basophils (%) (Auto) 0.7 0.0-2.0 % Neutrophils # (Auto) 7.9 1.6-8.6 10 ^3/uL Lymphocytes # (Auto) 1.9 0.4-5.4 10 ^3/uL Monocytes # (Auto) 0.8 0-1.3 10 ^3/uL Eosinophils # (Auto) 0 0-0.8 10 ^3/uL Basophils # (Auto) 0.1 0-0.2 10 ^3/uL Nucleated Red Blood Cells 0.1 % Magnesium Level 1.5 L 1.6-2.6 mg/dL Total Bilirubin 0.8 0.2-1.0 mg/dL Aspartate Amino Transferase (AST) 22 13-40 U/L Alanine Aminotransferase (ALT) 18 7-40 U/L Alkaline Phosphatase 94 46-116 U/L B-Type Natriuretic Peptide 194.35 0-100 pg/mL Total Protein 7.1 5.7-8.2 g/dL Albumin 3.9 3.2-4.8 g/dL Lipase 34 12-53 U/L Urine Color Colorless Yellow Urine Clarity Clear Clear Urine pH 6.5 5.0-9.0 Urine Specific [place] 1.005 1.001-1.035 Urine Protein Negative Negative Urine Ketones Negative Negative Urine Blood Negative Negative /uL Urine Nitrite Negative Negative Urine Bilirubin Negative Negative Urine Urobilinogen Normal Negative mg/dL Urine Leukocyte Esterase Negative Negative /uL Urine RBC None seen 0 - 4 /hpf Urine Microscopic WBC < 1 0-5 /HPF Urine Squamous Epithelial Cells Few <5 /hpf Urine Bacteria None seen None Seen /hpf Urine Glucose 4+ H Normal mg/dL SEPSIS Sepsis Screen Date sepsis recognized/suspect: Jul 20, 2025 Time Sepsis recognized/suspect: 1500 Recent Procedure: No On Antibiotic Therapy: No Respiratory Rate >20: No Heart Rate >90: No Temp<36 C (96.8 F) or >38.3 C: No SBP <90 or MAP <65 mmHG: No New Acute Mental Status Change: No Is the patient on CPAP, BIPAP,: No Physician Orders Supervisor Slitting And Shipping (07/20/25 ) Chest Portable (07/20/25 15:28) Electrocardigram (07/20/25 15:28) Ct Ab Pel Wo Con-No Oral Or Iv (07/20/25 15:28) Stool Occult Blood (07/20/25 15:32) Stool Wbc (07/20/25 15:32) Ova & Parasite Exam (07/20/25 15:32) Clostridium Difficile Toxin (07/20/25 15:32) Stool Bacterial Culture (07/20/25 15:32) Blood Culture (07/20/25 16:35) Admit (07/20/25 20:29) Nitroglycerin Sublingual (Ntrostat Subli (07/20/25 20:30) Morphine Sulfate Injection (07/20/25 20:30) Oxygen By Nasal Cannula (07/20/25 20:29) Stat Ekg For Chest Pain (07/20/25 20:29) Notify Md Of Changes From Base (07/20/25 20:29) Avionics Engineer For 24 Hours (07/20/25 20:29) Emergency Dysrhythmia Protocol (07/20/25:) Rhythm Strips Once Every Shift (07/20/25 20:29) Magnesium (07/20/25 20:29) Comprehensive Metabolic Panel (07/20/25 23:50) Lactic Acid W/ Reflex Order (07/20/25 23:50) Mrcp Mri (07/20/25 20:29) Piperacillin-Tazob 3.375gm (Zosyn 3.375g (07/20/25 22:00) Blood Culture (07/20/25 20:29) Bladder Scan (07/20/25 ) * [facility] Groundskeeper Porter (07/20/25 20:29) Pantoprazole (Protonix) (07/20/25 20:30) Pantoprazole (Protonix) (07/21/25 10:00) Morphine Sulfate Injection (07/20/25 20:30) Furosemide Injection (Lasix Injection) (07/21/25 10:00) Clear Liq Diet (07/21/25 Breakfast) Aspirin Tablet (07/20/25 20:30) Aspirin Tablet (07/21/25 10:00) Sucralfate Tab (Carafate Tab) (07/20/25 22:00) Atorvastatin (Lipitor) (07/20/25 22:00) Lisinopril Tablet (Zestril Tablet) (07/20/25 20:30) Lisinopril Tablet (Zestril Tablet) (07/21/25 10:00) DNR (07/20/25 20:46) Vital Signs Date Time Temp Pulse Resp B/P (MAP) Pulse Ox O2 Delivery O2 Flow Rate FiO2 07/20/25 19:05 97.9 73 17 138/64 (88) 98 97.9 07/20/25 18:18 96 31 163/74 (103) 07/20/25 17:57 163/74 07/20/25 17:00 74 19 163/74 (103) 100 07/20/25 16:51 142/63 07/20/25 16:00 70 07/20/25 15:00 18 98 Room Air* 0 21 07/20/25 15:00 98.3 72 18 153/54 (87) 98 98.3 07/20/25 14:14 98.0 88 20 176/67 99 98.0 Laboratory Tests Test 07/20/25 15:44 07/20/25 18:06 Lactic Acid Level 4.7 mmol/L (0.4-2.0) *H 3.2 mmol/L (0.4-2.0) *H White Blood Count 10.7 10^3/uL (4.4-10.8) Medications Medications Dose Ordered Sig/Jaret Route Start Time Stop Time Status Last Admin Dose Admin Fentanyl Citrate 100 mcg ONCE ONCE IV 07/20/25 17:45 07/20/25 17:46 DC 07/20/25 17:57 100 MCG Furosemide 40 mg ONCE ONCE IV 07/20/25 16:45 07/20/25 16:46 DC 07/20/25 16:51 40 MG Magnesium Sulfate/ Dextrose 100 ml @ 100 mls/hr ONCE ONCE IV 07/20/25 17:30 07/20/25 18:29 DC 07/20/25 18:22 100 MLS/HR Metronidazole 100 ml @ 100 mls/hr ONCE ONCE IV 07/20/25 16:45 07/20/25 17:44 DC 07/20/25 16:51 100 MLS/HR Potassium Chloride 60 meq ONCE ONCE PO 07/20/25 16:45 07/20/25 16:46 DC 07/20/25 16:50 60 MEQ Assessment/Plan Assessment/Plan Choledocholithiasis Acute on chronic systolic heart failure NSTEMI type 2 likely due to above Acute on chronic hypoxic respiratory failure Severe hypokalemia Metabolic acidosis Lactic acidosis Diabetes mellitus type 2 Hypertension Hyperlipidemia Coronary artery disease with history of multiple PCI and stents History of coronary artery bypass Complete heart block status post PCM History of CVA Nonobstructing bilateral renal calculi History of cholecystectomy Bladder distention Plan/recommendation -MRCP for further evaluation of choledocholithiasis, non trending bilirubin 0.8 mg/dL on 07/20/2025 -continue to monitor liver function tests -gastrology consultation for further evaluation -NSTEMI type 2/acute on chronic systolic heart failure: Reviewed echocardiogram. Ejection fraction 60% with concentric LVH on January 29, 2022. Repeat echocardiogram -continue Lasix 20 mg IV daily -continue home medication aspirin 81 mg p.o. daily, atorvastatin 40 mg p.o. daily. Continue lisinopril 5 mg p.o. daily. -continue oxygen via nasal cannula, currently at 2 L. Target SpO2 91-92%. -clear liquid diet -PUD prophylaxis with Protonix -DVT prophylaxis with Lovenox Goals of care discussed greater than 24 minutes, DNR. Plan discussed with Dr. Groves Plan discussed with: Patient, Other My Orders Orders - LELAND MEYER RESIDENT Procedure Category Date Status Time Admit ADMIT 07/20/25 Transmitted 20:[address] [facility] 07/20/25 In Process Sublingual (Ntrostat 20:30 Morphine Sulfate PHA 07/20/25 In Process Injection 20:30 Oxygen By Nasal RT 07/20/25 Transmitted Cannula 20:29 Stat Ekg For Chest [facility] 07/20/25 In Process Pain 20:29 Notify Of Changes [facility] 07/20/25 In Process From Base 20:29 Avionics Engineer For [facility] 07/20/25 In Process 24 Hours 20:29 Emergency Dysrhythmia [facility] 07/20/25 In Process Protocol 20:29 Rhythm Strips Once [facility] 07/20/25 In Process Every Shift 20:29 Magnesium LAB 07/20/25 Logged 20:29 Comprehensive LAB 07/20/25 Logged Metabolic Panel 23:50 Lactic Acid W/ Reflex LAB 07/20/25 Logged Order 23:50 Mrcp Mri MRI 07/20/25 Logged 20:29 Piperacillin-Tazob PHA 07/20/25 Logged 3.375gm (Zosyn 3.375g 22:00 Blood Culture JORDANA 07/20/25 Logged 20:29 Bladder Scan ED NURSING 07/20/25 Transmitted * [facility] Groundskeeper Porter CONS 07/20/25 Transmitted 20:29 Pantoprazole PHA 07/20/25 In Process (Protonix) 20:30 Pantoprazole PHA 07/21/25 Logged (Protonix) 10:00 Morphine Sulfate PHA 07/20/25 In Process Injection 20:30 Furosemide Injection PHA 07/21/25 In Process (Lasix Injection) 10:00 Clear Liq Diet DIET 07/21/25 Transmitted Breakfast Aspirin Tablet PHA 07/20/25 Logged 20:30 Aspirin Tablet PHA 07/21/25 Logged 10:00 Sucralfate Tab PHA 07/20/25 Logged (Carafate Tab) 22:00 Atorvastatin (Lipitor) PHA 07/20/25 Logged 22:00 Lisinopril Tablet PHA 07/20/25 Logged (Zestril Tablet) 20:30 Lisinopril Tablet PHA 07/21/25 Logged (Zestril Tablet) 10:00 DNR KELSEY 07/20/25 In Process 20:46 Date of Service: Jul 20, 2025 Billing Provider: MUNIRA GROVES MD Common Visit Codes: [id number] INP/OBS CARE (HIGH) Secondary Visit Codes: [id number] CARE PLAN 30 MINUTES MUNIRA GROVES MD 07/21/25 1305: Review of Systems Allergies: Coded Allergies: Cephalexin (Verified Allergy, Unknown, 07/06/21) NSAIDs (Verified Allergy, Unknown, 12/01/21) Date of Service: Jul 20, 2025 ([place] Patient) Billing Provider: MUNIRA GROVES MD Common Visit Codes: [id number] INP/OBS CARE (HIGH) Secondary Visit Codes: [id number] CARE PLAN 30 MINUTES LELAND MEYER Jul 20, 2025 20:50 MUNIRA GROVES MD Jul 21, 2025 13:05
[2025-07-20] MEDS: CIPROFLOXACIN 400MG/200ML 200 ML IV ONE (21:08)
[2025-07-20] MEDS: PANTOPRAZOLE 40 MG/10 ML VIAL INJ IV ONE (21:09)
[2025-07-20] MEDS: MORPHINE SULFATE INJ 2 MG/ml SYRG IV PRN (21:11)
[2025-07-20] MEDS: LISINOPRIL 5 MG TAB PO ONE (21:19)
[2025-07-20] MEDS: PIPERACILLIN-TAZOB 3.375GM 100 ML IV SCH (22:00)
[2025-07-20 22:47] VITALS: BP 123/55; PULSE 91; RESP 17; TEMP 97.8; TEMP 98.1; O2SAT 98
[2025-07-20 23:01] VITALS: PULSE 68; RESP 18; O2SAT 98
[2025-07-20] MEDS: SUCRALFATE 1 GM TAB PO SCH (23:40)
[2025-07-20] MEDS: ATORVASTATIN 20 MG TAB PO SCH (23:41)
[2025-07-21] VITALS (8 sets, daily range): BP systolic 118–158; BP diastolic 52–66; PULSE 62–97; RESP 15–20; TEMP 97.8–99; O2SAT 95–100
[2025-07-21 00:50] LABS: Alanine Aminotransferase 15 U/L (7-40); Albumin 3.7 g/dL (3.2-4.8); Alkaline Phosphatase 89 U/L (46-116); Anion Gap 14 (5-15); BUN/Creatinine Ratio 7.7 (10.0-20.0); Calcium 8.7 mg/dL (8.7-10.4); Carbon Dioxide 23 mmol/L (20-31); Chloride 99 mmol/L (98-107); Magnesium 1.8 mg/dL (1.6-2.6); Sodium 136 mmol/L (136-145); Total Protein 7.0 g/dL (5.7-8.2)
[2025-07-21 00:51] LABS: Bilirubin, Total 1.0 mg/dL (0.2-1.0)
[2025-07-21 01:03] LABS: Blood Urea Nitrogen 8 mg/dL (9-23); Glucose 186 mg/dL (74-106); Potassium 2.9 mmol/L (3.5-5.1)
[2025-07-21 01:36] LABS: Lactic Acid w/Reflex 3.5 mmol/L (0.4-2.0)
[2025-07-21] MEDS: MAGNESIUM SULFATE 1GM/100ML 100 ML IV ONE (02:31)
[2025-07-21] MEDS: POTASSIUM CHL 20MEQ/100ML 100 ML IV SCH ×2 (02:53→09:09)
[2025-07-21] MEDS: FUROSEMIDE 20 MG/2 ML VIAL IV SCH (09:05)
[2025-07-21] MEDS: PANTOPRAZOLE 40 MG/10 ML VIAL INJ IV SCH (09:06)
[2025-07-21] MEDS: MAGNESIUM OXIDE 400 MG TAB PO ONE (09:07)
[2025-07-21] MEDS: LISINOPRIL 5 MG TAB PO SCH (09:09)
[2025-07-21] MEDS: PIPERACILLIN-TAZOB 3.375GM 100 ML IV SCH (09:10)
[2025-07-21 09:34] LABS: Anion Gap 12 (5-15); Carbon Dioxide 25 mmol/L (20-31); Chloride 98 mmol/L (98-107); Potassium 3.6 mmol/L (3.5-5.1)
[2025-07-21 09:40] LABS: BUN/Creatinine Ratio 7.3 (10.0-20.0); Hematocrit 38.0 % (36.0-46.0); Hemoglobin 13.0 g/dL (12.2-16.2); Mean Corpuscular Hemoglobin 29.4 pg (28.0-32.0); Mean Corpuscular Volume 86.1 fL (80.0-100.0); Nucleated Red Blood Cells % 0.1 %
[2025-07-21 09:48] LABS: Blood Urea Nitrogen 8 mg/dL (9-23); Calcium 8.6 mg/dL (8.7-10.4); Glucose 305 mg/dL (74-106); Sodium 135 mmol/L (136-145)
[2025-07-21 09:54] LABS: Lactic Acid w/Reflex 3.8 mmol/L (0.4-2.0)
--- NOTE | 2025-07-21 12:25 | DVHPN2 ---
Reviewed: Care Plan, H&P, Labs, Medications, Previous Orders, Radiology Changes from previous H/P or p: No Changes Eyes: No Pain, No Vision change, No Conjunctivae inflammation, No Eyelid inflammation, No Other, No Redness ENT: No Ear pain, No Ear discharge, No Nose pain, No Nose discharge, No Nose congestion, No Mouth pain, No Mouth swelling, No Throat pain, No Throat swelling, No Other Cardiovascular: No Chest Pain, No Palpitations, No Orthopnea, No Paroxysmal Noc. Dyspnea, No Edema, No Lt Headedness, No Other Respiratory: No Cough, No Dry, No Shortness of breath, No SOB with excertion, No Wheezing, No Hemoptysis, No Pleuritic Pain, No Sputum, No Other Gastrointestinal: Nausea, Vomiting, Abdominal Pain Genitourinary: No Dysuria, No Frequency, No Incontinence, No Hematuria, No Retention, No Other Musculoskeletal: No other, No neck pain, No shoulder pain, No arm pain, No back pain, No hand pain, No leg pain, No foot pain Skin: No Rash, No Lesions, No Jaundice, No Bruising, No Other Objective Vitals Vital Signs Date Time Temp Pulse Resp B/P (MAP) Pulse Ox O2 Delivery O2 Flow Rate FiO2 07/21/25 09:09 140/66 07/21/25 09:00 98.2 67 15 100 98.2 07/21/25 08:00 Nasal Cannula* 2 28 Intake/Output Intake and Output 07/21/25 07:00 Intake Total 900 ml Output Total 2205 ml Balance -1305 ml Intake Oral 800 ml IV Total 100 ml Output Urine Total 2205 ml Medications Current Medications Medications Dose Ordered Sig/Jaret Route Start Time Stop Time Status Last Admin Dose Admin Nitroglycerin 0.4 mg Q5MINP PRN SL 07/20/25 20:30 Morphine Sulfate 2 mg Q30M PRN IV 07/20/25 20:30 Pantoprazole Sodium 40 mg DAILY IV 07/21/25 10:00 07/21/25 09:06 40 MG Morphine Sulfate 1 mg Q4HP PRN IV 07/20/25 20:30 07/21/25 02:49 1 MG Furosemide 20 mg DAILY IV 07/21/25 10:00 07/21/25 09:05 20 MG Aspirin 81 mg DAILY PO 07/21/25 10:00 07/21/25 09:08 81 MG Sucralfate 1 gm QIDACHS PO 07/20/25 22:00 07/21/25 09:07 1 GM Atorvastatin Calcium 40 mg HS PO 07/20/25 22:00 07/20/25 23:41 40 MG Lisinopril 5 mg DAILY PO 07/21/25 10:00 07/21/25 09:09 5 MG Piperacillin Sod/ Tazobactam Sod 100 ml @ 25 mls/hr Q8HR@0200,1000,1800 IV 07/21/25 10:00 07/21/25 09:10 25 MLS/HR Laboratory Results Laboratory Tests 07/21/25 08:57 Chemistry Test 07/20/25 15:44 07/20/25 18:06 07/21/25 00:05 07/21/25 08:57 Albumin 3.9 g/dL (3.2-4.8) 3.7 g/dL (3.2-4.8) Calcium Level 8.7 mg/dL (8.7-10.4) 9.1 mg/dL (8.7-10.4) 8.7 mg/dL (8.7-10.4) 8.6 mg/dL (8.7-10.4) L Magnesium Level 1.5 mg/dL (1.6-2.6) L 1.8 mg/dL (1.6-2.6) Total Protein 7.1 g/dL (5.7-8.2) 7.0 g/dL (5.7-8.2) Lipid panel Test 07/20/25 15:44 Lipase 34 U/L (12-53) Cardiac Markers Test 07/20/25 15:44 B-Type Natriuretic Peptide 194.35 pg/mL (0-100) LFT Test 07/20/25 15:44 07/21/25 00:05 Alanine Aminotransferase (ALT) 18 U/L (7-40) 15 U/L (7-40) Alkaline Phosphatase 94 U/L (46-116) 89 U/L (46-116) Aspartate Amino Transferase (AST) 22 U/L (13-40) 22 U/L (13-40) Total Bilirubin 0.8 mg/dL (0.2-1.0) 1.0 mg/dL (0.2-1.0) Urinalysis Test 07/20/25 15:28 Urine Color Colorless (Yellow) Urine Clarity Clear (Clear) Urine pH 6.5 (5.0-9.0) Urine Specific [place] 1.005 (1.001-1.035) Urine Protein Negative (Negative) Urine Ketones Negative (Negative) Urine Blood Negative /uL (Negative) Urine Nitrite Negative (Negative) Urine Bilirubin Negative (Negative) Urine Urobilinogen Normal mg/dL (Negative) Urine Leukocyte Esterase Negative /uL (Negative) Urine RBC None seen /hpf (0 - 4) Urine Microscopic WBC < 1 /HPF (0-5) Urine Squamous Epithelial Cells Few /hpf (<5) Urine Bacteria None seen /hpf (None Seen) Urine Glucose 4+ mg/dL (Normal) H Labs and/or images reviewed: Labs reviewed by me, Image(s) reviewed by me Assessment/Plan Assessment/Plan Sepsis secondary to choledocholithiasis:: Zosyn Choledocholithiasis 14 mm distal CBD stone by MRCP; consult by GI Dr. Angel Mancia Acute on chronic systolic heart failure NSTEMI type 2 likely due to above Acute on chronic hypoxic respiratory failure Severe hypokalemia: Potassium 2.4: Replace potassium Metabolic acidosis Lactic acidosis Diabetes mellitus type 2 Hypertension Hyperlipidemia Coronary artery disease with history of multiple PCI and stents History of coronary artery bypass Complete heart block status post PCM History of CVA Nonobstructing bilateral renal calculi History of cholecystectomy Bladder distention Patient was recently seen in [facility] one week ago and discharged home and the patient was advised that all labs were normal Time spent 70 minutes Advanced care planning time 20 minutes Patient is full code Patient is not stable for transfer to [facility] Plan discussed with: Patient My Orders Orders - CINDY REHMAN MD Procedure Category Date Status Time * Gi [facility] Supervisor [employer] CONS 07/21/25 Verified 12:15 Date of Service: Jul 21, 2025 Billing Provider: CINDY REHMAN MD Common Visit Codes: [id number] CARE 30-74 MIN CINDY REHMAN MD Jul 21, 2025 12:25
[2025-07-21] MEDS ORDERED: ONDANSETRON HCL 4 MG/2 ML VIAL IV PRN (15:45)
[2025-07-21] MEDS ORDERED: DEXTROSE (50%) 50ML SYRG IV PRN (15:45)
[2025-07-21] MEDS: ACCU-CHEK COMFORT CURVE STRIP VI SCH (16:05)
[2025-07-21] MEDS: InsuLIN REG 1unit/0.01ml Soln (100units/ml) SC SCH ×2 (16:29→22:00)
[2025-07-22] VITALS (8 sets, daily range): BP systolic 131–167; BP diastolic 51–72; PULSE 60–87; RESP 15–18; TEMP 98–98.2; O2SAT 97–99
[2025-07-22] MEDS: HYDROcodone-ACET 5/325MG TAB PO PRN (06:00)
[2025-07-22] MEDS: CARVEDILOL 12.5 MG TAB PO SCH (09:14)
--- NOTE | 2025-07-22 09:37 | DVHPN2 ---
Reviewed: Care Plan, H&P, Labs, Medications, Previous Orders, Radiology Changes from previous H/P or p: No Changes Eyes: No Pain, No Vision change, No Conjunctivae inflammation, No Eyelid inflammation, No Other, No Redness ENT: No Ear pain, No Ear discharge, No Nose pain, No Nose discharge, No Nose congestion, No Mouth pain, No Mouth swelling, No Throat pain, No Throat swelling, No Other Cardiovascular: No Chest Pain, No Palpitations, No Orthopnea, No Paroxysmal Noc. Dyspnea, No Edema, No Lt Headedness, No Other Respiratory: No Cough, No Dry, No Shortness of breath, No SOB with excertion, No Wheezing, No Hemoptysis, No Pleuritic Pain, No Sputum, No Other Gastrointestinal: Nausea, Vomiting, Abdominal Pain Genitourinary: No Dysuria, No Frequency, No Incontinence, No Hematuria, No Retention, No Other Musculoskeletal: No other, No neck pain, No shoulder pain, No arm pain, No back pain, No hand pain, No leg pain, No foot pain Skin: No Rash, No Lesions, No Jaundice, No Bruising, No Other Objective Vitals Vital Signs Date Time Temp Pulse Resp B/P (MAP) Pulse Ox O2 Delivery O2 Flow Rate FiO2 07/22/25 09: 168/78 07/22/25 09:14 69 07/22/25 04:59 98.0 18 97 98.0 07/21/25 20:00 Room Air* 0 21 Intake/Output Intake and Output 07/22/25 07:00 Intake Total 1300 ml Output Total 2750 ml Balance -1450 ml Intake Oral 900 ml IV Total 400 ml Output Urine Total 2750 ml Medications Current Medications Medications Dose Ordered Sig/Jaret Route Start Time Stop Time Status Last Admin Dose Admin Nitroglycerin 0.4 mg Q5MINP PRN SL 07/20/25 20:30 Morphine Sulfate 2 mg Q30M PRN IV 07/20/25 20:30 Pantoprazole Sodium 40 mg DAILY IV 07/21/25 10:00 07/22/25 09:15 40 MG Morphine Sulfate 1 mg Q4HP PRN IV 07/20/25 20:30 07/21/25 02:49 1 MG Furosemide 20 mg DAILY IV 07/21/25 10:00 07/22/25 09:15 20 MG Aspirin 81 mg DAILY PO 07/21/25 10:00 07/22/25 09:14 81 MG Sucralfate 1 gm QIDACHS PO 07/20/25 22:00 07/22/25 09:14 1 GM Atorvastatin Calcium 40 mg HS PO 07/20/25 22:00 07/21/25 22:03 40 MG Lisinopril 5 mg DAILY PO 07/21/25 10:00 07/22/25 09:25 5 MG Piperacillin Sod/ Tazobactam Sod 100 ml @ 25 mls/hr Q8HR@0200,1000,1800 IV 07/21/25 10:00 07/22/25 09:14 25 MLS/HR Diagnostic Test (Pha) 1 strip ACHS 07/21/25 17:00 07/22/25 06:08 1 STRIP Insulin Human Regular HS SC 07/21/25 22:00 Insulin Human Regular AC SC 07/21/25 17:00 Dextrose 50 ml UD PRN IV 07/21/25 15:45 Acetaminophen/ Hydrocodone Bitart 1 tab Q6HPRN PRN PO 07/21/25 15:45 07/22/25 06:00 1 TAB Ondansetron HCl 4 mg Q6HPRN PRN IV 07/21/25 15:45 Carvedilol 12.5 mg Q12HR PO 07/22/25 10:00 07/22/25 09:14 12.5 MG Laboratory Results Laboratory Tests 07/21/25 08:57 Urinalysis Test 07/20/25 15:28 Urine Color Colorless (Yellow) Urine Clarity Clear (Clear) Urine pH 6.5 (5.0-9.0) Urine Specific [place] 1.005 (1.001-1.035) Urine Protein Negative (Negative) Urine Ketones Negative (Negative) Urine Blood Negative /uL (Negative) Urine Nitrite Negative (Negative) Urine Bilirubin Negative (Negative) Urine Urobilinogen Normal mg/dL (Negative) Urine Leukocyte Esterase Negative /uL (Negative) Urine RBC None seen /hpf (0 - 4) Urine Microscopic WBC < 1 /HPF (0-5) Urine Squamous Epithelial Cells Few /hpf (<5) Urine Bacteria None seen /hpf (None Seen) Urine Glucose 4+ mg/dL (Normal) H Microbiology Microbiology Date/Time Source Procedure Growth Status 07/20/25 16:51 Blood Blood Culture - Preliminary NO GROWTH AFTER 24 HOURS OF INCUBATION. Resulted Labs and/or images reviewed: Labs reviewed by me, Image(s) reviewed by me Assessment/Plan Assessment/Plan Sepsis secondary to choledocholithiasis:: Zosyn Choledocholithiasis 14 mm distal CBD stone by MRCP; consult by GI Dr. Angel Mancia pending. Acute on chronic systolic heart failure NSTEMI type 2 likely due to above Acute on chronic hypoxic respiratory failure Severe hypokalemia: Potassium 2.4: Replace potassium Metabolic acidosis Lactic acidosis Diabetes mellitus type 2 Hypertension Hyperlipidemia Coronary artery disease with history of multiple PCI and stents History of coronary artery bypass Complete heart block status post [facility] History of CVA Nonobstructing bilateral renal calculi History of cholecystectomy Bladder distention Patient was recently seen in [facility] one week ago and discharged home and the patient was advised that all labs were normal Time spent 70 minutes Advanced care planning time 20 minutes Patient is full code Patient is not stable for transfer to [place] today Plan discussed with: Patient My Orders Orders - CINDY REHMAN MD Procedure Category Date Status Time * [facility] Director Of Enterprise Strategy CONS 07/21/25 Transmitted 12:15 Glucose Blood PHA 07/21/25 In Process (Accu-Chek Comfort 17:00 Insulin R (Human) PHA 07/21/25 In Process (Insulin R) 22:00 Insulin R (Human) PHA 07/21/25 In Process (Insulin R) 17:00 Dextrose 50% Syringe PHA 07/21/25 In Process 15:45 Hydrocodone-Acet PHA 07/21/25 In Process 5/325mg Tab (Mobile 15:45 Ondansetron Hcl PHA 07/21/25 In Process (Zofran) 15:45 Npo (Nothing By DIET 07/22/25 Transmitted Mouth) Diet Breakfast Npo Except Ice Chips KELSEY 07/21/25 In Process 18:42 Carvedilol Tablet PHA 07/22/25 In Process (Coreg Tablet) 10:00 Date of Service: Jul 22, 2025 Billing Provider: CINDY REHMAN MD Common Visit Codes: [id number] INP/OBS CARE(HIGH) CINDY REHMAN MD Jul 22, 2025 09:37
[2025-07-22 10:29] LABS: Hepatitis B Surface Antigen Negative (Negative); Hepatitis C Antibody Negative (Negative)
--- NOTE | 2025-07-22 12:20 | DVHSR ---
APPROVED REPORT EXAM: Two-dimensional and M-mode echocardiogram with Doppler and color Doppler. Blood Pressure: 150/72 mmHg INDICATION CHF RISK FACTORS Height: 64, DIMENSIONS LVDd4.8 (3.8-5.7cm)LA (2D)3.8 (1.9-4.0cm)Aortic Root3.2 (2.0-3.7cm) LVDs3.6 (2.5-4.0cm)LA (MM) (1.9-4.0cm)Aortic Cusp Exc1.6 (1.5-2.0cm) EF (%) 50.0 (55-70%)Rt. Atrium (1.9-4.0cm)Asc. Aorta cm Mitral Valve MitralMitral Stenosis E wave0.56m/sMV Mean GR.2mmHg A wave1.05m/sMV Peak GR.140mmHg E/A ratio0.52D MVAcm2 DECEL [id number] 1/2 Timems Aortic Valve Aortic ValveAortic Stenosis V10.71m/Lelo Mean GR.3mmHg V21.21m/Lelo Peak GR.6mmHg LVOT Diameter2.1 (1.8-2.4cm)Doppler AVA2.03cm2 Pulmonic Valve V20.90m/s Tricuspid Valve TR Velocity2.43m/s [id number] Other Information Technically limited study due to body habitus. Conclusion lvef 35% mild LVH global dysfunction RV enlarged left atrium enlarged moderate mild mitral regurg
--- NOTE | 2025-07-22 12:29 | DVHINCON2 ---
GI Consult Consult Note GI consult note Date of Consultation: 07/22/2025 Chief Complaint: Choledocholithiasis Referring Physician: Dr. Gaston H&P: 79-year-old female admitted with complains of syncope. Patient also complaining of abdominal pain ongoing for many months, worse in the last three weeks, mostly in the epigastric area and per patient it is constant pain. Patient has nausea and vomiting every day. Denies hematemesis. Patient has decreased appetite and weight loss unsure how many lb. Patient also complaining of dark stool no blood in his stool. Patient is status post cholecystectomy more than 30-40 years ago. Status post EGD earlier this year, unsure which month, at [facility], unsure about results. Status post colonoscopy about 10 years ago per patient. Patient has a pacemaker. Unsure if she had any MRCP in past Past Medical History: DM, HTN, HLD, CAD s/p multiple PCI and CABG, obesity, systolic HF, complete heart block s/p pacemaker, history of CVA. Past Surgical History: Hysterectomy, CABG, PRP, vitrectomy, lithotripsy. Cholecystectomy status uncertain. Social History: NO smoking, drinking ETOH and use of illegal drugs. Family History: Noncontributory Review of Systems: Constitutional: no fever, chill, weight loss HEENT: no eye pain, no hearing loss, no oral lesion, no scleral icterus Heart: no chest pain, no chest pressure Lung: no cough, no dyspnea with exertion Abdomen: see HPI Physical exam: General: NAD, AAOX3 Chest: lung [place] clear to auscultation Heart: RRR, no murmur Abdomen:+ epigastric tenderness to palpation, +BS Labs: Labs Test 07/22/25 06:04 07/21/25 08:57 07/21/25 00:05 07/20/25 18:06 Range/Units POC Glucose 280 H 70-106 mg/dl White Blood Count 9.6 4.4-10.8 10^3/uL Red Blood Count 4.41 4.0-5.20 10^6/uL Hemoglobin 13.0 12.2-16.2 g/dL Hematocrit 38.0 36.0-46.0 % Mean Corpuscular Volume 86.1 80.0-100.0 fL Mean Corpuscular Hemoglobin 29.4 28.0-32.0 pg Mean Corpuscular Hemoglobin Concent 34.2 32.0-36.0 g/dL Red Cell Distribution Width 14.9 H 11.8-14.3 % Platelet Count 228 140-450 10^3/uL Mean Platelet Volume 7.3 6.9-10.8 fL Neutrophils (%) (Auto) 64.7 37.0-80.0 % Lymphocytes (%) (Auto) 25.2 10.0-50.0 % Monocytes (%) (Auto) 9.0 0.0-12.0 % Eosinophils (%) (Auto) 0.6 0.0-7.0 % Basophils (%) (Auto) 0.5 0.0-2.0 % Neutrophils # (Auto) 6.2 1.6-8.6 10 ^3/uL Lymphocytes # (Auto) 2.4 0.4-5.4 10 ^3/uL Monocytes # (Auto) 0.9 0-1.3 10 ^3/uL Eosinophils # (Auto) 0.1 0-0.8 10 ^3/uL Basophils # (Auto) 0 0-0.2 10 ^3/uL Nucleated Red Blood Cells 0.1 % Sodium Level 135 L 136-145 mmol/L Potassium Level 3.6 3.5-5.1 mmol/L Chloride Level 98 98-107 mmol/L Carbon Dioxide Level 25 20-31 mmol/L Anion Gap 12 5-15 Blood Urea Nitrogen 8 L 9-23 mg/dL Creatinine 1.09 H 0.550-1.02 mg/dL Glomerular Filtration Rate Calc 52 >90 mL/min BUN/Creatinine Ratio 7.3 L 10.0-20.0 Serum Glucose 305 H 74-106 mg/dL Lactic Acid Level 3.8 *H 0.4-2.0 mmol/L Calcium Level 8.6 L 8.7-10.4 mg/dL Magnesium Level 1.8 1.6-2.6 mg/dL Total Bilirubin 1.0 0.2-1.0 mg/dL Aspartate Amino Transferase (AST) 22 13-40 U/L Alanine Aminotransferase (ALT) 15 7-40 U/L Alkaline Phosphatase 89 46-116 U/L Total Protein 7.0 5.7-8.2 g/dL Albumin 3.7 3.2-4.8 g/dL Troponin I High Sensitivity 81 *H </=34 ng/L Test 9/27/25 15:44 07/20/25 15:28 07/19/25 16:57 Range/Units B-Type Natriuretic Peptide 194.35 0-100 pg/mL Lipase 34 12-53 U/L Urine Color Colorless Yellow Urine Clarity Clear Clear Urine pH 6.5 5.0-9.0 Urine Specific [place] 1.005 1.001-1.035 Urine Protein Negative Negative Urine Ketones Negative Negative Urine Blood Negative Negative /uL Urine Nitrite Negative Negative Urine Bilirubin Negative Negative Urine Urobilinogen Normal Negative mg/dL Urine Leukocyte Esterase Negative Negative /uL Urine RBC None seen 0 - 4 /hpf Urine Microscopic WBC < 1 0-5 /HPF Urine Squamous Epithelial Cells Few <5 /hpf Urine Bacteria None seen None Seen /hpf Urine Glucose 4+ H Normal mg/dL Hepatitis B Surface Antigen Negative Negative Hepatitis C Antibody Negative Negative Microbiology Date/Time Source Procedure Growth Status 07/20/25 16:51 Blood Blood Culture - Preliminary NO GROWTH AFTER 24 HOURS OF INCUBATION. Resulted Imaging: CT abdomen pelvis IMPRESSION: Limited evaluation without contrast. Nonobstructing bilateral renal calculi up to 3 mm. Dilated CBD measuring 14 mm. Possible distal CBD calculus measuring 3 mm. Recommend MRCP and GI consultation. Cholecystectomy. Atherosclerotic disease. Bladder distention. Other findings as described. Assessment: Abdominal pain Choledocholithiasis Status post cholecystectomy Sepsis Plan: Discussed with Dr. Mancia MRCP MRI Labs in a.m. Recommend transferred to higher level of care for possible ERCP if needed We will continue to monitor patient Discussed plan with patient and RN Thank you for this consult Date of Service: Jul 22, 2025 Billing Provider: FLORENCIA REHMAN Common Visit Codes: CONSULT ONLY Consultation Codes: [id number] CONSULT <60MIN FLORENCIA REHMAN Jul 22, 2025 12:29
--- NOTE | 2025-07-22 16:19 | DVH ---
PROCEDURE: MRI MRCP MRI Indication: choledocolithiasis COMPARISON: 07/20/2025 TECHNIQUE: Multiplanar multisequence images of the brain are obtained. FINDINGS: Dilated CBD measuring 18 mm. Dilated intrahepatic ducts up to mm. Normal pancreatic duct diameter, 3 mm. Possible distal CBD calculus measuring 4 mm. Adrenal glands unremarkable. Spleen, pancreas unremarkable. No T2 bright hepatic lesions. No hydronephrosis. Thoracolumbar levocurvature. Advanced lumbar degenerative disc disease. IMPRESSION: Dilated CBD and intrahepatic ducts. Possible distal CBD calculus measuring 4 mm versus stricture/oth er lesion. Recommend GI consultation for further evaluation with ERCP / endoscopic ultrasound. Normal caliber pancreatic duct. Other findings as described.
[2025-07-23] VITALS (7 sets, daily range): BP systolic 132–170; BP diastolic 61–75; PULSE 60–71; RESP 16–18; TEMP 36.8; O2SAT 96–99
[2025-07-23] MEDS ORDERED: hydrALAZINE HCL 20 MG/ML VL IV ONE (07:00)
[2025-07-23 09:44] LABS: Alanine Aminotransferase 12.0 U/L (7-40); Alkaline Phosphatase 88.0 U/L (46-116); Total Protein 7.1 g/dL (5.7-8.2)
[2025-07-23 09:46] LABS: Albumin 3.7 g/dL (3.2-4.8); Bilirubin, Direct 0.3 mg/dL (<0.3); Bilirubin, Total 1.1 mg/dL (0.2-1.0)
--- NOTE | 2025-07-23 09:49 | DVHPN2 ---
Reviewed: Care Plan, H&P, Labs, Medications, Previous Orders, Radiology Changes from previous H/P or p: No Changes Eyes: No Pain, No Vision change, No Conjunctivae inflammation, No Eyelid inflammation, No Other, No Redness ENT: No Ear pain, No Ear discharge, No Nose pain, No Nose discharge, No Nose congestion, No Mouth pain, No Mouth swelling, No Throat pain, No Throat swelling, No Other Cardiovascular: No Chest Pain, No Palpitations, No Orthopnea, No Paroxysmal Noc. Dyspnea, No Edema, No Lt Headedness, No Other Respiratory: No Cough, No Dry, No Shortness of breath, No SOB with excertion, No Wheezing, No Hemoptysis, No Pleuritic Pain, No Sputum, No Other Gastrointestinal: Nausea, Vomiting, Abdominal Pain Genitourinary: No Dysuria, No Frequency, No Incontinence, No Hematuria, No Retention, No Other Musculoskeletal: No other, No neck pain, No shoulder pain, No arm pain, No back pain, No hand pain, No leg pain, No foot pain Skin: No Rash, No Lesions, No Jaundice, No Bruising, No Other Objective Vitals Vital Signs Date Time Temp Pulse Resp B/P (MAP) Pulse Ox O2 Delivery O2 Flow Rate FiO2 07/23/25 08:32 97.7 61 18 170/61 (97) 99 97.7 07/22/25 20:00 Room Air* 0 21 Intake/Output Intake and Output 07/23/25 07:00 Intake Total 300 ml Output Total 1750 ml Balance -1450 ml Intake Oral 0 ml IV Total 300 ml Output Urine Total 1750 ml Medications Current Medications Medications Dose Ordered Sig/Jaret Route Start Time Stop Time Status Last Admin Dose Admin Nitroglycerin 0.4 mg Q5MINP PRN SL 07/20/25 20:30 Morphine Sulfate 2 mg Q30M PRN IV 07/20/25 20:30 Pantoprazole Sodium 40 mg DAILY IV 07/21/25 10:00 07/23/25 07:56 40 MG Morphine Sulfate 1 mg Q4HP PRN IV 07/20/25 20:30 07/21/25 02:49 1 MG Furosemide 20 mg DAILY IV 07/21/25 10:00 07/23/25 07:57 20 MG Aspirin 81 mg DAILY PO 07/21/25 10:00 07/23/25 07:55 81 MG Sucralfate 1 gm QIDACHS PO 07/20/25 22:00 07/23/25 07:55 1 GM Atorvastatin Calcium 40 mg HS PO 07/20/25 22:00 07/22/25 22:33 40 MG Lisinopril 5 mg DAILY PO 07/21/25 10:00 07/23/25 07:55 5 MG Piperacillin Sod/ Tazobactam Sod 100 ml @ 25 mls/hr Q8HR@0200,1000,1800 IV 07/21/25 10:00 07/23/25 07:56 25 MLS/HR Diagnostic Test (Pha) 1 strip ACHS 07/21/25 17:00 07/23/25 06:28 1 STRIP Insulin Human Regular HS SC 07/21/25 22:00 Insulin Human Regular AC SC 07/21/25 17:00 Dextrose 50 ml UD PRN IV 07/21/25 15:45 Acetaminophen/ Hydrocodone Bitart 1 tab Q6HPRN PRN PO 07/21/25 15:45 07/23/25 01:43 1 TAB Ondansetron HCl 4 mg Q6HPRN PRN IV 07/21/25 15:45 Carvedilol 12.5 mg Q12HR PO 07/22/25 10:00 07/23/25 07:56 12.5 MG Laboratory Results Laboratory Tests 07/21/25 08:57 Chemistry Test 07/23/25 08:07 Albumin Pending Total Protein Pending LFT Test 07/23/25 08:07 Alanine Aminotransferase (ALT) Pending Alkaline Phosphatase Pending Aspartate Amino Transferase (AST) Pending Direct Bilirubin Pending Total Bilirubin Pending Urinalysis Test 07/20/25 15:28 Urine Color Colorless (Yellow) Urine Clarity Clear (Clear) Urine pH 6.5 (5.0-9.0) Urine Specific [place] 1.005 (1.001-1.035) Urine Protein Negative (Negative) Urine Ketones Negative (Negative) Urine Blood Negative /uL (Negative) Urine Nitrite Negative (Negative) Urine Bilirubin Negative (Negative) Urine Urobilinogen Normal mg/dL (Negative) Urine Leukocyte Esterase Negative /uL (Negative) Urine RBC None seen /hpf (0 - 4) Urine Microscopic WBC < 1 /HPF (0-5) Urine Squamous Epithelial Cells Few /hpf (<5) Urine Bacteria None seen /hpf (None Seen) Urine Glucose 4+ mg/dL (Normal) H Microbiology Microbiology Date/Time Source Procedure Growth Status 07/20/25 16:51 Blood Blood Culture - Preliminary NO GROWTH AFTER 48 HOURS OF INCUBATION. Resulted Labs and/or images reviewed: Labs reviewed by me, Image(s) reviewed by me Assessment/Plan Assessment/Plan Sepsis secondary to choledocholithiasis:: Zosyn Dilatation of CBD 14 mm with 4 mm distal CBD stone by MRCP; consult by GI Dr. Angel Mancia appreciated, advised transfer to higher level of care for ERCP Acute on chronic systolic heart failure NSTEMI type 2 likely due to above Acute on chronic hypoxic respiratory failure Severe hypokalemia: Potassium 2.4: Replace potassium Metabolic acidosis Lactic acidosis Diabetes mellitus type 2 Hypertension Hyperlipidemia Coronary artery disease with history of multiple PCI and stents History of coronary artery bypass Complete heart block status post PCM History of CVA Nonobstructing bilateral renal calculi History of cholecystectomy Bladder distention Patient was recently seen in [facility] one week ago and discharged home and the patient was advised that all labs were normal Time spent 70 minutes Advanced care planning time 20 minutes Patient is full code Patient is not stable for transfer to [facility] Plan discussed with: Patient Date of Service: Jul 23, 2025 Billing Provider: CINYD REHMAN MD Common Visit Codes: [id number] CARE 30-74 MIN CINDY REHMAN MD Jul 23, 2025 09:49
--- NOTE | 2025-07-23 09:54 | DVHDS2 ---
Discharge Summary Date of Admission Jul 20, 2025 at 20:29 Date of Discharge: Jul 23, 2025 Admitting Diagnosis Abdominal pain nausea vomiting Wounds: None Labs/Diagnostic Data: Laboratory Results Test 07/23/25 08:07 07/23/25 06:09 07/21/25 08:57 07/21/25 00:05 Total Bilirubin 1.1 mg/dL (0.2-1.0) Direct Bilirubin 0.3 mg/dL (<0.3) Aspartate Amino Transferase (AST) 28 U/L (13-40) Alanine Aminotransferase (ALT) 12 U/L (7-40) Alkaline Phosphatase 88 U/L (46-116) Total Protein 7.1 g/dL (5.7-8.2) Albumin 3.7 g/dL (3.2-4.8) POC Glucose 243 mg/dl (70-106) White Blood Count 9.6 10^3/uL (4.4-10.8) Red Blood Count 4.41 10^6/uL (4.0-5.20) Hemoglobin 13.0 g/dL (12.2-16.2) Hematocrit 38.0 % (36.0-46.0) Mean Corpuscular Volume 86.1 fL (80.0-100.0) Mean Corpuscular Hemoglobin 29.4 pg (28.0-32.0) Mean Corpuscular Hemoglobin Concent 34.2 g/dL (32.0-36.0) Red Cell Distribution Width 14.9 % (11.8-14.3) Platelet Count 228 10^3/uL (140-450) Mean Platelet Volume 7.3 fL (6.9-10.8) Neutrophils (%) (Auto) 64.7 % (37.0-80.0) Lymphocytes (%) (Auto) 25.2 % (10.0-50.0) Monocytes (%) (Auto) 9.0 % (0.0-12.0) Eosinophils (%) (Auto) 0.6 % (0.0-7.0) Basophils (%) (Auto) 0.5 % (0.0-2.0) Neutrophils # (Auto) 6.2 10 ^3/uL (1.6-8.6) Lymphocytes # (Auto) 2.4 10 ^3/uL (0.4-5.4) Monocytes # (Auto) 0.9 10 ^3/uL (0-1.3) Eosinophils # (Auto) 0.1 10 ^3/uL (0-0.8) Basophils # (Auto) 0 10 ^3/uL (0-0.2) Nucleated Red Blood Cells 0.1 % Sodium Level 135 mmol/L (136-145) Potassium Level 3.6 mmol/L (3.5-5.1) Chloride Level 98 mmol/L (98-107) Carbon Dioxide Level 25 mmol/L (20-31) Anion Gap 12 (5-15) Blood Urea Nitrogen 8 mg/dL (9-23) Creatinine 1.09 mg/dL (0.550-1.02) Glomerular Filtration Rate Calc 52 mL/min (>90) BUN/Creatinine Ratio 7.3 (10.0-20.0) Serum Glucose 305 mg/dL (74-106) Lactic Acid Level 3.8 mmol/L (0.4-2.0) Calcium Level 8.6 mg/dL (8.7-10.4) Magnesium Level 1.8 mg/dL (1.6-2.6) Test 07/20/25 18:06 07/20/25 15:44 07/20/25 15:28 07/19/25 16:57 Troponin I High Sensitivity 81 ng/L (</=34) B-Type Natriuretic Peptide 194.35 pg/mL (0-100) Lipase 34 U/L (12-53) Urine Color Colorless (Yellow) Urine Clarity Clear (Clear) Urine pH 6.5 (5.0-9.0) Urine Specific [place] 1.005 (1.001-1.035) Urine Protein Negative (Negative) Urine Ketones Negative (Negative) Urine Blood Negative /uL (Negative) Urine Nitrite Negative (Negative) Urine Bilirubin Negative (Negative) Urine Urobilinogen Normal mg/dL (Negative) Urine Leukocyte Esterase Negative /uL (Negative) Urine RBC None seen /hpf (0 - 4) Urine Microscopic WBC < 1 /HPF (0-5) Urine Squamous Epithelial Cells Few /hpf (<5) Urine Bacteria None seen /hpf (None Seen) Urine Glucose 4+ mg/dL (Normal) Hepatitis B Surface Antigen Negative (Negative) Hepatitis C Antibody Negative (Negative) Other Laboratory Tests 07/21/25 08:57 Brief Hx & Hospital Course: 79-year-old female with a history of congestive heart failure chronic respiratory failure diabetes hypertension hypercholesterolemia coronary artery disease status post multiple stents history of CABG complete heart block status post pacemaker history of CVA status post cholecystectomy came in complaining of abdominal pain nausea and vomiting . CT abdomen pelvis showed CBD dilatation 14 mm with 4 mm distal CBD stone. The patient was treated with the Zosyn for possible sepsis. CT abdomen pelvis confirmed by the MRCP findings GI consult by Dr. Angel Mancia advised to transfer to higher level of care for ERCP Orders placed for social sciences department chair to transfer the patient to [place] for ERCP Consults/Reason for consult GI Dr. Angel Mancia Operations or Procedures CT abdomen pelvis without contrast MRCP Condition at Discharge: Fair Final Diagnosis/Problems List Sepsis secondary to choledocholithiasis:: Zosyn Dilatation of CBD 14 mm with 4 mm distal CBD stone by MRCP; consult by GI Dr. Angel Mancia appreciated, advised transfer to higher level of care for ERCP Acute on chronic systolic heart failure NSTEMI type 2 likely due to above Acute on chronic hypoxic respiratory failure Severe hypokalemia: Potassium 2.4: Replace potassium Metabolic acidosis Lactic acidosis Diabetes mellitus type 2 Hypertension Hyperlipidemia Coronary artery disease with history of multiple PCI and stents History of coronary artery bypass Complete heart block status post PCM History of CVA Nonobstructing bilateral renal calculi History of cholecystectomy Discharge Disposition: Acute Care Facility Discharge Instruct/Medications Diet: Cardiac 2g Na,low cholest Activity: Light activity Follow Up/Referral: Per [place] Medications: see list Scheduled Aspirin (Aspir-81), 1 TAB PO DAILY Atorvastatin Calcium (Atorvastatin Calcium), 1 TAB PO QPM Carvedilol (Carvedilol), 1 TAB PO BID Empagliflozin (Jardiance), 0.5 TAB PO DAILY, (Reported) Lisinopril (Lisinopril), 1 TAB PO DAILY, (Reported) Metoprolol Tartrate (Metoprolol Tartrate), 1 TAB PO BID Omeprazole (Omeprazole Dr), 1 CAP PO BID, (Reported) Sertraline Hcl (Sertraline Hcl), 1 TAB PO DAILY, (Reported) Ticagrelor Base (Brilinta), 90 MG PO BID Scheduled PRN Nitroglycerin (Ntrostat Sublingual), 0.4 MG SL Q5MINP PRN 39 (Time taken for discharge summary 39 minutes) Discharge Statement: "Patient was advised to return to the ER or call 911 if any headaches, dizziness, shortness of breath, chest pain, abdominal pain, bleeding, fevers, or worsening of medical condition. Patient was counseled about treatment plan, medications, possible side effects, patientverbalized understanding. All questions were answered to the best of my ability. This discharge took greater then 30 minutes in planning, reviewing documentation, counseling the patient, and discussing with other team members." ASSESSMENT ASSESSMENT Hospital Course Marginally improved Assessment Sepsis secondary to choledocholithiasis:: Zosyn Dilatation of CBD 14 mm with 4 mm distal CBD stone by MRCP; consult by GI Dr. Angel Mancia appreciated, advised transfer to higher level of care for ERCP Acute on chronic systolic heart failure NSTEMI type 2 likely due to above Acute on chronic hypoxic respiratory failure Severe hypokalemia: Potassium 2.4: Replace potassium Metabolic acidosis Lactic acidosis Diabetes mellitus type 2 Hypertension Hyperlipidemia Coronary artery disease with history of multiple PCI and stents History of coronary artery bypass Complete heart block status post PCM History of CVA Nonobstructing bilateral renal calculi History of cholecystectomy Date of Service: Jul 23, 2025 Billing Provider: CINDY REHMAN MD Common Visit Codes: [id number] DISCH DAY >30min CINDY REHMAN MD Jul 23, 2025 09:54
--- NOTE | 2025-07-23 16:02 | DVHPN2 ---
Progress Note Date Seen: Jul 23, 2025 Resident Creating Document: LARY DAVIS RESIDENT Medical Necessity Reason Pt with a Central, PICC or Fol: No Subjective Review of Systems Patient seen and examined at bedside Denies any nausea or vomiting Notes 6/10 mid abdominal pain Last bowel movement this morning, soft Objective vital signs Vital Sign Date Time Temp Pulse Resp B/P (MAP) Pulse Ox O2 Delivery O2 Flow Rate FiO2 07/23/25 12:34 98.3 60 18 137/73 (94) 97 98.3 07/23/25 08:00 Nasal Cannula* 2 28 Total Intake and Output 07/22/25 07/22/25 07/23/25 15:00 23:00 07:00 Intake Total 100 ml 100 ml 100 ml Output Total 1450 ml 300 ml Balance 100 ml -1350 ml -200 ml medications Current Medications Medications Dose Ordered Sig/Jaret Route Start Time Stop Time Status Last Admin Dose Admin Nitroglycerin 0.4 mg Q5MINP PRN SL 07/20/25 20:30 Morphine Sulfate 2 mg Q30M PRN IV 07/20/25 20:30 Pantoprazole Sodium 40 mg DAILY IV 07/21/25 10:00 07/23/25 07:56 40 MG Morphine Sulfate 1 mg Q4HP PRN IV 07/20/25 20:30 07/21/25 02:49 1 MG Furosemide 20 mg DAILY IV 07/21/25 10:00 07/23/25 07:57 20 MG Aspirin 81 mg DAILY PO 07/21/25 10:00 07/23/25 07:55 81 MG Sucralfate 1 gm QIDACHS PO 07/20/25 22:00 07/23/25 07:55 1 GM Atorvastatin Calcium 40 mg HS PO 07/20/25 22:00 07/22/25 22:33 40 MG Lisinopril 5 mg DAILY PO 07/21/25 10:00 07/23/25 07:55 5 MG Piperacillin Sod/ Tazobactam Sod 100 ml @ 25 mls/hr Q8HR@0200,1000,1800 IV 07/21/25 10:00 07/23/25 07:56 25 MLS/HR Diagnostic Test (Pha) 1 strip ACHS 07/21/25 17:00 07/23/25 11:46 1 STRIP Insulin Human Regular HS SC 07/21/25 22:00 Insulin Human Regular AC SC 07/21/25 17:00 07/23/25 11:30 12 UNITS Dextrose 50 ml UD PRN IV 07/21/25 15:45 Acetaminophen/ Hydrocodone Bitart 1 tab Q6HPRN PRN PO 07/21/25 15:45 07/23/25 01:43 1 TAB Ondansetron HCl 4 mg Q6HPRN PRN IV 07/21/25 15:45 Carvedilol 12.5 mg Q12HR PO 07/22/25 10:00 07/23/25 07:56 12.5 MG Examination General: NAD, AAOX3 Chest: lung [place] clear to auscultation Heart: RRR, no murmur Abdomen:+ midabdominal tenderness to palpation, +BS laboratory and microbiology Laboratory Tests 07/21/25 08:57 Test 07/21/25 08:57 Range/Units Serum Glucose 305 H 74-106 mg/dL Microbiology Date/Time Source Procedure Growth Status 07/20/25 16:51 Blood Blood Culture - Preliminary NO GROWTH AFTER 48 HOURS OF INCUBATION. Resulted Problem List/Assessment/Plan Problem List/Assessment/Plan Acute intractable abdominal pain Choledocholithiasis Possible acute cholangitis Status post cholecystectomy Sepsis Plan: MRCP MRI: Dilated CBD and intrahepatic ducts. Possible distal CBD calculus measuring 4 mm versus stricture/other lesion. Recommend GI consultation for further evaluation with ERCP / endoscopic ultrasound. We recommend transfer to higher level of care for possible ERCP and/or EUS IV antibiotic Continue current management Thank you so much for the opportunity to consult on your patient. GI team will follow the patient. In case of any questions or concerns please feel free to reach out. Plan discussed with Dr. Mancia Plan discussed with: Patient, Other (BINDU Andrews) LARY DAVIS RESIDENT Jul 23, 2025 16:02
[2025-07-23 17:11] LABS: COVID19 ANTIGEN SOFIA FIA NEGATIVE (NEGATIVE)
== END 2025-07-23 19:50 | disposition short-term general hospital (02) | DRG 871 ==
LOC: ER 13:58 → EDBD 13:58 → OVERFLOW 20:29 → TELE-CENTR 22:47
PROVIDERS: ADMIT Family Medicine; ATTEND Family Medicine
DX: A41.9 Sepsis, unspecified organism (principal); I21.A1 Myocardial infarction type 2; J96.21 Acute and chronic respiratory failure with hypoxia; I50.23 Acute on chronic systolic (congestive) heart failure; E87.20 Acidosis, unspecified; E11.9 Type 2 diabetes mellitus without complications; E87.6 Hypokalemia; N20.0 Calculus of kidney; N32.89 Other specified disorders of bladder; K80.50 Calculus of bile duct without cholangitis or cholecystitis without obstruction; E83.42 Hypomagnesemia; I25.10 Atherosclerotic heart disease of native coronary artery without angina pectoris; Z66 Do not resuscitate; E78.00 Pure hypercholesterolemia, unspecified; E66.9 Obesity, unspecified; K21.9 Gastro-esophageal reflux disease without esophagitis; Z79.899 Other long term (current) drug therapy; Z90.49 Acquired absence of other specified parts of digestive tract; Z95.1 Presence of aortocoronary bypass graft; Z95.0 Presence of cardiac pacemaker; Z86.73 Personal history of transient ischemic attack (TIA), and cerebral infarction without residual deficits; Z88.1 Allergy status to other antibiotic agents; Z88.3 Allergy status to other anti-infective agents; Z79.82 Long term (current) use of aspirin; Z95.5 Presence of coronary angioplasty implant and graft; Z82.49 Family history of ischemic heart disease and other diseases of the circulatory system; Z90.710 Acquired absence of both cervix and uterus; Z68.28 Body mass index [BMI] 28.0-28.9, adult
CPT/HCPCS: 36415; 71045; 74176; 74181; 80048; 80053; 80076; 81001; 82962; 83605; 83690; 83735; 83880; 84484; 85025; 86803; 87040; 87340; 87426; 93306; 96365; 96375; G0378; J1815; J2470; J2543; J3480; J3490